=== PATIENT | female | born 1955 | race African-American/Black ===

== ENCOUNTER 2016-09-02 12:35 | Inpatient (IN) | payer OTHER ==
[2016-09-02 14:19] VITALS: BMI 28.7
[2016-09-02] MEDS ORDERED: MAG HYDROX/AL HYDROX/SIMETH 30 ML UNIT-DOSE CUP PO PRN (14:55)
[2016-09-02] MEDS ORDERED: chlordiazePOXIDE HCL 25 MG CAPSULE PO PRN (14:55)
[2016-09-02] MEDS ORDERED: LOPERAMIDE HCL 2 MG CAPSULE PO PRN (14:55)
[2016-09-02] MEDS ORDERED: MAGNESIUM HYDROX 2400MG/30ML ORAL SUSPENSION 30 ML CUP PO PRN (14:55)
[2016-09-02] MEDS ORDERED: MENTHOL/PHENOL 1 EACH UD MM PRN (14:55)
[2016-09-02] MEDS ORDERED: IBUPROFEN 400 MG TABLET (FP) PO PRN (14:55)
[2016-09-02] MEDS ORDERED: P-EPHED 60MG/TRIPROLIDI 2.5MG TABLET PO PRN (14:55)
[2016-09-02] MEDS ORDERED: MAGNESIUM CITRATE 300 ML BOTTLE PO PRN (14:55)
[2016-09-02] MEDS ORDERED: ACETAMINOPHEN 325 MG TABLET (FP) PO PRN (14:55)
[2016-09-02] MEDS ORDERED: hydrOXYzine PAMOATE 25 MG CAPSULE (FP) PO PRN (14:55)
[2016-09-02] MEDS ORDERED: guaiFENesin/D-METHORPHAN HB 10 ML UNIT-DOSE CUPS PO PRN (14:55)
--- NOTE | 2016-09-02 15:15 | HP ---
CIWA Score - CIWA Score Nausea/Vomitin Muscle Tremors: 3 Anxiety: 3 Agitation: 3 Paroxysmal Sweats: 3 Orientation: 0-Oriented Tacttile Disturbances: 2-Mild Itch/Numbness/Burn Auditory Disturbances: 0-None Visual Disturbances: 0-None Headache: 0-None Present CIWA-Ar Total Score: 17 Admission ROS BHS - HPI Chief Complaint: i need help to stop using alcohol. Allergies/Adverse Reactions: Allergies Allergy/AdvReac Type Severity Reaction Status Date / Time ciprofloxacin [From Cipro] Allergy Severe Verified 09/02/16 14:42 ciprofloxacin HCl Allergy Severe Verified 09/02/16 14:42 [From Cipro] egg Allergy Severe Verified 09/02/16 14:44 Penicillins Allergy Severe Verified 09/02/16 14:42 Sulfa (Sulfonamide Allergy Severe Verified 09/02/16 14:42 Antibiotics) History of Present Illness: 61 y/o f pt with a h/o chronic alcoholism and cocaine abuse seeking detox. Exam Limitations: No Limitations - Ebola screening Have you traveled outside of the country in the last 21 days: No Have you had contact with anyone from an Ebola affected area: No Have you been sick,other than usual withdrawal symptoms: No Do you have a fever: No - Review of Systems Constitutional: Malaise, Changes in sleep, Weakness EENT: reports: Blurred Vision, Dental Problems (multiple missing teeth) Respiratory: reports: Shortness of Breath, Wheezing Cardiac: reports: Palpitations GI: reports: Indigestion Musculoskeletal: reports: Joint Pain, Muscle Pain, Muscle Weakness, Neck Pain Integumentary: reports: Dryness Neuro: reports: Tremors Endocrine: reports: No Symptoms Reported Hematology: reports: No Symptoms Reported Psychiatric: reports: Agitated, Anxious, Depressed Other Systems: Reviewed and Negative Patient History - Patient Medical History Hx Anemia: Yes Hx Asthma: Yes Hx Chronic Obstructive Pulmonary Disease (COPD): No Hx Cancer: No Hx Cardiac Disorders: No Hx Hypertension: Yes (non complaint with meds.) Hx Hypercholesterolemia: Yes Hx Pacemaker: No HX Cerebrovascular Accident: No Hx Seizures: No Hx Dementia: No Hx Diabetes: No Hx Gastrointestinal Disorders: No Hx Liver Disease: No Hx Genitourinary Disorders: No Hx Sexually Transmitted Disorders: No Hx Renal Disease (ESRD): No Hx Thyroid Disease: No Hx Human Immunodeficiency Virus (HIV): No Hx Hepatitis C: No Hx Depression: Yes Hx Suicide Attempt: Yes (Tried to overdose 15 yrs ago.) Hx Bipolar Disorder: Yes (schizoaffective ) Hx Schizophrenia: No Other Medical History: h/o rt leg sciatica - ambulates with a cane . - Patient Surgical History Past Surgical History: Yes Hx Hysterectomy: Yes Other Surgical History: Partial hysterectomy - PPD History Previous Implant?: Yes Documented Results: Positive w/o proof Implanted On Prior R Admission?: No - Reproductive History Patient is a Female of Child Bearing Age (11 -55 yrs old): Yes Last Menstrual Period: 08/30/96 Patient : No - Smoking Cessation Smoking history: Current every day smoker Have you smoked in the past 12 months: Yes Aproximately how many cigarettes per day: 10 Cigars Per Day: 0 Hx Chewing Tobacco Use: No Initiated information on smoking cessation: Yes 'Breaking Loose' booklet given: 09/02/16 - Substance & Tx. History Hx Alcohol Use: Yes Hx Substance Use: Yes Substance Use Type: Alcohol, Cocaine Hx Substance Use Treatment: Yes - Substances Abused Alcohol Route: Oral Frequency: Daily Amount used: 1 PINT VODKA/ 2 BEERS Age of first use: 20 Date of Last Use: 09/02/16 Cocaine Route: Inhalation Frequency: 1-3 times last 30 days Amount used: 1/2 GRAM Age of first use: 20 Date of Last Use: 09/01/16 Family Disease History - Family Disease History Family Disease History: Diabetes: Mother (asthma ), Respiratory: Mother Admission Physical Exam BHS - Vital Signs Vital Signs: Vital Signs - 24 hr 09/02/16 14:17 Temperature 96.9 F L Pulse Rate 105 H Respiratory 20 Rate Blood Pressure 159/106 61 y/o f pt aox3 ambulates with a cane , cooperative with exam . - Physical General Appearance: Yes: Appropriately Dressed, Obese, Tremorous (mild), Sweating, Anxious HEENTM: Yes: EOMI, Hearing grossly Normal, Normal Voice, JULIANO Respiratory: Yes: Chest Non-Tender, Lungs Clear, Normal Breath Sounds, No Respiratory Distress Neck: Yes: Supple, Trachea in good position Breast: Yes: Breast Exam Deferred Cardiology: Yes: Regular Rhythm, Tachycardia Abdominal: Yes: Non Tender, Soft, Increased Bowel Sounds, Protuberent Genitourinary: Yes: Frequency Back: Yes: Decreased Range of Motion Musculoskeletal: Yes: Back pain, Muscle weakness (on rt le) Neurological: Yes: pattern weaver II-XII NML intact, Fully Oriented, Alert, Motor Strength 5/5, Normal Response Integumentary: Yes: Diaphoresis, Moist Lymphatic: Yes: Within Normal Limits - Diagnostic (1) Alcohol dependence with uncomplicated withdrawal Current Visit: Yes Status: Chronic (2) Cocaine abuse, uncomplicated Current Visit: Yes Status: Chronic (3) Nicotine dependence Current Visit: Yes Status: Chronic Qualifiers: Nicotine product type: cigarettes Substance use status: uncomplicated Qualified Code(s): F17.210 - Nicotine dependence, cigarettes, uncomplicated (4) HTN (hypertension) Current Visit: Yes Status: Chronic Qualifiers: Hypertension type: essential hypertension Qualified Code(s): I10 - Essential (primary) hypertension (5) Bipolar 1 disorder Current Visit: Yes Status: Chronic (6) GERD (gastroesophageal reflux disease) Current Visit: Yes Status: Chronic Qualifiers: Esophagitis presence: without esophagitis Qualified Code(s): K21.9 - Gastro-esophageal reflux disease without esophagitis (7) H/O sciatica Current Visit: Yes Status: Chronic Comment: on rt -ambulates with a cane Cleared for Admission [facility] - Detox or Rehab [facility] Level of Care: Medically Managed Detox Regimen/Protocol: Librium [facility] Breath Alcohol Content Breath Alcohol Content: 0 Urine Pregancy Test - Result Urine Test Results: Negative- NO Line Present Urine Drug Screen - Results Drug Screen Negative: No Urine Drug Screen Results: LASHELL-Cocaine, TCA-Tricyclic Antidepress
[2016-09-02] MEDS ORDERED: ENALAPRIL MALEATE 10 MG TABLET (FP) PO ONE (15:30)
[2016-09-02] MEDS: chlordiazePOXIDE HCL 25 MG CAPSULE PO SCH ×2 (16:44→22:54)
[2016-09-02] MEDS: ENALAPRIL MALEATE 10 MG TABLET (FP) PO SCH (16:44)
[2016-09-02] MEDS: ATORVASTATIN CA 40 MG TABLET (FP) PO SCH (22:54)
[2016-09-02] MEDS: CYCLOBENZAPRINE HCL 10 MG TABLET (FP) PO SCH (22:54)
[2016-09-02] MEDS: THIAMINE HCL 100 MG TABLET (FP) PO SCH (22:54)
[2016-09-02] MEDS: diphenhydrAMINE HCL 50 MG CAPSULE PO PRN (22:54)
[2016-09-02 23:11] LABS: URINE APPEARANCE SLCLOUDY; URINE BILIRUBIN NEGATIVE (NEGATIVE); URINE BLOOD NEGATIVE (NEGATIVE); URINE COLOR YELLOW; URINE GLUCOSE (UA) NEGATIVE (NEGATIVE); URINE KETONE NEGATIVE (NEGATIVE); URINE NITRITE NEGATIVE (NEGATIVE); URINE PROTEIN NEGATIVE (NEGATIVE); URINE UROBILINOGEN NEGATIVE E.U./dl (0.2-1.0)
[2016-09-02 23:13] LABS: URINE LEUK ESTERASE TRACE (NEGATIVE)
[2016-09-02 23:15] LABS: URINE BACTERIA MANY /hpf (NONE SEEN); URINE HYALINE CAST 1 /lpf; URINE MUCUS FEW; URINE RBC 1 /hpf (0-3); URINE WBC 5 /hpf (3-5)
[2016-09-02] MEDS: NICOTINE POLACRILEX 4 MG GUM BUC PRN (23:57)
[2016-09-03] MEDS: chlordiazePOXIDE HCL 25 MG CAPSULE PO SCH ×4 (05:28→22:47)
[2016-09-03 10:14] LABS: MCH 32.1 pg (25.7-33.7); MEAN CELL VOLUME 97.4 fl (80-96); MEAN PLT VOLUME 10.2 fl (7.5-11.1); PLATELET COUNT 214 K/MM3 (134-434); RDW 14.5 % (11.6-15.6); WHITE BLOOD COUNT 8.4 K/mm3 (4.0-10.0)
[2016-09-03 10:40] LABS: BILIRUBIN,TOTAL 0.5 mg/dL (0.2-1.0); CALCIUM 9.4 mg/dL (8.5-10.1); CREATININE 1.4 mg/dL (0.55-1.02)
[2016-09-03] MEDS: ENALAPRIL MALEATE 10 MG TABLET (FP) PO SCH ×2 (11:01→14:32)
[2016-09-03] MEDS: CYCLOBENZAPRINE HCL 10 MG TABLET (FP) PO SCH ×2 (11:01→22:47)
[2016-09-03] MEDS: PANTOPRAZOLE 40 MG TABLET (FP) PO SCH (11:01)
[2016-09-03] MEDS: PRENATAL VITAMINS W/ FOLIC ACID TABLET (FP) PO SCH (11:01)
[2016-09-03] MEDS: NICOTINE 21 MG/24 HOURS TOPICAL PATCH TD SCH (11:02)
[2016-09-03] MEDS: NICOTINE POLACRILEX 4 MG GUM BUC PRN ×2 (11:04→22:56)
[2016-09-03] MEDS ORDERED: cloNIDine HCL 0.1 MG TABLET PO ONE (12:05)
[2016-09-03] MEDS ORDERED: AMMONIUM LACTATE 12% LOTION 225 GM BOTTLE TP PRN (12:09)
--- NOTE | 2016-09-03 12:09 | PN ---
BHS CIWA - CIWA Score Nausea/Vomitin Muscle Tremors: 2 Anxiety: 3 Agitation: 3 Paroxysmal Sweats: 3 Orientation: 0-Oriented Tacttile Disturbances: 2-Mild Itch/Numbness/Burn Auditory Disturbances: 0-None Visual Disturbances: 0-None Headache: 0-None Present CIWA-Ar Total Score: 15 BHS Progress Note (SOAP) Subjective: interrupted sleep, sweats, , bodyaches , dry eyes Objective: 09/03/16 12:07 pt aox3 in nad ambulating Assessment: 09/03/16 12:07 withdrawal sx;s Plan: cont. detox increase fuids artifical tears lachydrin lotion analgesic balm
[2016-09-03] MEDS: ARTIFICIAL TEARS (POLYVINYL ALCOHOL 1.4%) OPTH DROPS OU PRN ×2 (13:22→22:46)
--- NOTE | 2016-09-03 16:22 | CONSULT ---
[facility] Psychiatric Consult - Data Date of interview: 09/03/16 Admission source: [facility] Identifying data: First admission to [facility] for this 61 y/o AA female for alcohol and cocaine dependence. Substance Abuse History: - Smoking Cessation. Smoking history: Current every day smoker. Have you smoked in the past 12 months: Yes. Aproximately how many cigarettes per day: 10. Cigars Per Day: 0. Hx Chewing Tobacco Use: No. Initiated information on smoking cessation: Yes. 'Breaking Loose' booklet given : 09/02/16. - Substance & Tx. History. Hx Alcohol Use: Yes. Hx Substance Use : Yes. Substance Use Type: Alcohol, Cocaine. Hx Substance Use Treatment: Yes. - Substances Abused. Alcohol. Route: Oral. Frequency: Daily. Amount used: 1 PINT VODKA/ 2 BEERS. Age of first use: 20. Date of Last Use: . Cocaine. Route: Inhalation. Frequency: 1-3 times last 30 days. Amount used: 1/2 GRAM. Age of first use: 20. Date of Last Use: 09/01/16. Confirmed by the patient. Medical History: Bronchial asthma,GERD,sciatica,hypertension,arthritis and a history of partial hysterectomy.Patient ambulates with a cane. Psychiatric History: Patient denies history of psychiatric hospitalizations.It appears that her history consists only of CPEP visits for extended observation and release the next day.Diagnosed with Bipolar Disorder.Medications (confirmed by pharmacy claims) : seroquel 600 mg po hs + wellbutrin XL 150 mg/day + neurontin 300 mg po tid.Ms Heart gets [facility]PD psychiatric care at her residence, [facility].Reported history of suicide attempt,years ago,via overdose with medications. Physical/Sexual Abuse/Trauma History: Patient denies. Additional Comment: Urine Drug Screen Results: LASHELL-Cocaine, TCA-Tricyclic Antidepressant.Noted. Mental Status Exam - Mental Status Exam Alert and Oriented to: Time, Place, Person Cognitive Function: Good Patient Appearance: Well Groomed Mood: Hopeful Affect: Normal Range Patient Behavior: Fatigued, Cooperative Speech Pattern: Clear Voice Loudness: Normal Thought Process: Goal Oriented Thought Disorder: Not Present Hallucinations: Denies Suicidal Ideation: Denies Homicidal Ideation: Denies Insight/Judgement: Poor Sleep: Poorly, Difficulty falling asleep Appetite: Good Gait/Station: Other (walks with a cane) Psychiatric Findings - Problem List ([place] 1, 2,3) (1) Alcohol dependence with uncomplicated withdrawal Current Visit: Yes Status: Acute (2) Cocaine abuse, uncomplicated Current Visit: Yes Status: Acute (3) Nicotine dependence Current Visit: Yes Status: Acute Qualifiers: Nicotine product type: cigarettes Substance use status: uncomplicated Qualified Code(s): F17.210 - Nicotine dependence, cigarettes, uncomplicated (4) Bipolar disorder Current Visit: Yes Status: Chronic (5) GERD (gastroesophageal reflux disease) Current Visit: Yes Status: Chronic Qualifiers: Esophagitis presence: without esophagitis Qualified Code(s): K21.9 - Gastro-esophageal reflux disease without esophagitis (6) H/O sciatica Current Visit: Yes Status: Chronic Comment: on rt -ambulates with a cane (7) HTN (hypertension) Current Visit: Yes Status: Chronic Qualifiers: Hypertension type: essential hypertension Qualified Code(s): I10 - Essential (primary) hypertension - Initial Treatment Plan Initial Treatment Plan: Psychoeducation.Detoxification.Medications : seroquel 300 mg po hs (reduced) + wellbutrin XL 150 mg po daily + gabapentin 300 mg po tid.Side effects/benefits discussed with patient.She,verbally,consents for treatment.Observation.No scripts needed at discharge (available supply at home/ regular scripts from [facility]PD psychiatrist).
--- NOTE | 2016-09-03 16:55 | EKG ---
Test Reason : Blood Pressure : / mmHG Vent. Rate : 105 BPM Atrial Rate : 105 BPM P-R Int : 162 ms QRS Dur : 086 ms QT Int : 376 ms P-R-T Axes : 044 000 040 degrees QTc Int : 496 ms SINUS TACHYCARDIA OTHERWISE NORMAL ECG NO PREVIOUS ECGS AVAILABLE Confirmed by SALVATORE TOUSSAINT MD ([id number]) on 09/03/2016 4:55:12 PM Referred By: Confirmed By:SALVATORE TOUSSAINT MD
[2016-09-03] MEDS ORDERED: QUEtiapine FUMARATE 300 MG TABLET PO SCH (22:00)
[2016-09-03] MEDS: METHYL SALICYLATE/MENTHOL OINT 30 GM TUBE TP SCH (22:46)
[2016-09-03] MEDS: GABAPENTIN 300 MG CAPSULE (FP) PO SCH (22:47)
[2016-09-03] MEDS: ATORVASTATIN CA 40 MG TABLET (FP) PO SCH (22:47)
[2016-09-03] MEDS: THIAMINE HCL 100 MG TABLET (FP) PO SCH (22:48)
[2016-09-04] MEDS: chlordiazePOXIDE HCL 25 MG CAPSULE PO SCH ×2 (05:02→10:41)
[2016-09-04] MEDS: GABAPENTIN 300 MG CAPSULE (FP) PO SCH (05:02)
[2016-09-04] MEDS: NICOTINE 21 MG/24 HOURS TOPICAL PATCH TD SCH (10:40)
[2016-09-04] MEDS: CYCLOBENZAPRINE HCL 10 MG TABLET (FP) PO SCH (10:40)
[2016-09-04] MEDS: METHYL SALICYLATE/MENTHOL OINT 30 GM TUBE TP SCH ×2 (10:40→22:31)
[2016-09-04] MEDS: ENALAPRIL MALEATE 10 MG TABLET (FP) PO SCH (10:44)
[2016-09-04] MEDS: PRENATAL VITAMINS W/ FOLIC ACID TABLET (FP) PO SCH (10:44)
[2016-09-04] MEDS: PANTOPRAZOLE 40 MG TABLET (FP) PO SCH ×2 (10:45→10:56)
[2016-09-04] MEDS: amLODIPine BESYLATE 5 MG TABLET (FP) PO SCH (10:45)
--- NOTE | 2016-09-04 10:56 | PN ---
[facility] CIWA - CIWA Score Nausea/Vomitin-No Nausea/No Vomiting Muscle Tremors: 3 Anxiety: 2 Agitation: 3 Paroxysmal Sweats: 3 Orientation: 0-Oriented Tacttile Disturbances: 0-None Auditory Disturbances: 0-None Visual Disturbances: 0-None Headache: 0-None Present CIWA-Ar Total Score: 11 [facility] Progress Note (SOAP) Subjective: very groggy sluggish interrupted sleep sweats Objective: 09/04/16 10:57 Vital Signs Temperature 97.5 F L 09/04/16 10:00 Pulse Rate 93 H 09/04/16 10:00 Respiratory Rate 18 09/04/16 10:00 Blood Pressure 134/92 09/04/16 10:00 O2 Sat by Pulse Oximetry (%) Laboratory Tests 09/02/16 09/03/16 09/03/16 22:00 06:00 06:00 WBC 8.4 RBC 4.20 Hgb 13.5 Hct 40.9 MCV 97.4 H MCHC 33.0 RDW 14.5 Plt Count 214 MPV 10.2 Sodium 141 Potassium 3.5 Chloride 108 H Carbon Dioxide 23 Anion Gap 10 BUN 28 H Creatinine 1.4 H Creat Clearance w eGFR 38.49 Random Glucose 84 Calcium 9.4 Total Bilirubin 0.5 AST 23 ALT 36 Alkaline Phosphatase 122 H Total Protein 8.0 Albumin 4.0 Urine Color Yellow Urine Appearance Slcloudy Urine pH 6.0 Ur Specific [place] 1.024 Urine Protein Negative Urine Glucose (UA) Negative Urine Ketones Negative Urine Blood Negative Urine Nitrite Negative Urine Bilirubin Negative Urine Urobilinogen Negative Ur Leukocyte Esterase Trace H Urine RBC 1 Urine WBC 5 Ur Epithelial Cells Moderate Urine Bacteria Many Hyaline Casts 1 Urine Mucus Few RPR Titer 09/03/16 06:00 WBC RBC Hgb Hct MCV MCHC RDW Plt Count MPV Sodium Potassium Chloride Carbon Dioxide Anion Gap BUN Creatinine Creat Clearance w eGFR Random Glucose Calcium Total Bilirubin AST ALT Alkaline Phosphatase Total Protein Albumin Urine Color Urine Appearance Urine pH Ur Specific [place] Urine Protein Urine Glucose (UA) Urine Ketones Urine Blood Urine Nitrite Urine Bilirubin Urine Urobilinogen Ur Leukocyte Esterase Urine RBC Urine WBC Ur Epithelial Cells Urine Bacteria Hyaline Casts Urine Mucus RPR Titer Nonreactive awake/alert responsive when spoken too but appears too sedated lying in bed Assessment: 09/04/16 10:58 mild withdrawal sx Plan: hold librium this am increase fluids psych also consulted with and also agreed to hold all sedating medication will re-evaluate
--- NOTE | 2016-09-04 11:05 | PN ---
Psychiatric Progress Note Vital Signs: Vital Signs Period Temp Pulse Resp BP Sys/Gordon Pulse Ox Last 24 Hr 97.5 F-98.4 F 93-109 18-18 111-148/65-102 Date of Session: 09/04/16 Chief Complaint:: Oversedation HPI: As per nursing report patient is oversedated, delayed speech and minimal activities Current Medications: Active Medications Generic Name Dose Route Start Last Admin Trade Name Freq PRN Reason Stop Dose Admin Acetaminophen 650 mg 09/02/16 14:55 Tylenol - PO Q4H PRN FEVER OR PAIN Al Hydroxide/Mg Hydroxide 30 ml 09/02/16 14:55 Mylanta Oral Suspension - PO Q6H PRN DYSPEPSIA Amlodipine Besylate 5 mg 09/04/16 10:00 09/04/16 10:45 Norvasc - PO 5 mg DAILY NATASHA Administration Artificial Tears 1 drop 09/03/16 12:10 09/03/16 22:46 Artificial Tears OU 1 drop BID PRN Administration DRY EYES Atorvastatin Calcium 40 mg 09/02/16 22:00 09/03/16 22:47 Lipitor - PO 40 mg HS NATASHA Administration Bupropion HCl 150 mg 09/04/16 10:00 09/04/16 10:46 Wellbutrin Xl - PO Not Given DAILY NATASHA Chlordiazepoxide HCl 10 mg 09/05/16 17:00 Librium - PO 09/06/16 11:01 [id number] NATASHA Chlordiazepoxide HCl 25 mg 09/02/16 14:55 Librium - PO 09/05/16 14:54 Q4H PRN WITHDRAWAL(CONT SUBST) Chlordiazepoxide HCl 15 mg 09/04/16 17:00 Librium - PO 09/05/16 11:01 [id number] NATASHA Diphenhydramine HCl 50 mg 09/02/16 14:55 09/02/16 22:54 Benadryl - PO 50 mg HSMR1 PRN Administration INSOMNIA Enalapril Maleate 10 mg 09/03/16 10:00 09/04/16 10:44 Vasotec - PO 10 mg DAILY NATASHA Administration Enalapril Maleate 10 mg 09/02/16 15:30 09/03/16 14:32 Vasotec - PO Not Given ONCE NATASHA Ergocalciferol 50,000 unit 09/09/16 10:00 Drisdol - PO Mo@1000 NATASHA Eucalyptus/Menthol/Phenol/Sorbitol 1 each 09/02/16 14:55 Cepastat Lozenge - MM Q4H PRN SORE THROAT Gabapentin 300 mg 09/03/16 22:00 09/04/16 05:02 Neurontin - PO 300 mg TID NATASHA Administration Guaifenesin 10 ml 09/02/16 14:55 Robitussin Dm - PO Q6H PRN COUGH Hydroxyzine Pamoate 25 mg 09/02/16 14:55 Vistaril - PO Q4H PRN AGITATION Ibuprofen 400 mg 09/02/16 14:55 Motrin - PO Q6H PRN SEVERE PAIN Lactic Acid 1 applic 09/03/16 12:09 09/03/16 13:20 Lac-Hydrin 12 TP 1 applic BID PRN Administration DRY SKIN Loperamide HCl 4 mg 09/02/16 14:55 Imodium - PO Q6H PRN DIARRHEA Magnesium Citrate 300 ml 09/02/16 14:55 Citroma - PO Q48H PRN CONSTIPATION Magnesium Hydroxide 30 ml 09/02/16 14:55 Milk Of Magnesia - PO DAILY PRN CONSTIPATION Methyl Salicylate 1 applic 09/03/16 22:00 09/04/16 10:40 Jose-Mooney - TP Not Given BID [facility] Nicotine 21 mg 09/03/16 10:00 09/04/16 10:40 Nicoderm Patch - TD Not Given DAILY [facility] Nicotine Polacrilex 4 mg 09/02/16 14:55 09/03/16 22:56 Nicorette Gum - BUC 4 mg Q2H PRN Administration NICOTINE REPLACEMENT RX Pantoprazole Sodium 40 mg 09/03/16 10:00 09/04/16 10:56 Protonix - PO Not Given DAILY [facility] Multivit/Folic Acid/Iron 1 tab 09/03/16 10:00 09/04/16 10:44 Vitamins (Sjr) - PO Not Given DAILY [facility] Pseudoephedrine/Triprolidine 1 combo 09/02/16 14:55 Actifed - PO TID PRN NASAL CONGESTION Quetiapine Fumarate 300 mg 09/03/16 22:00 09/03/16 22:47 Seroquel - PO 300 mg HS NATASHA Administration Thiamine HCl 100 mg 09/02/16 22:00 09/03/16 22:48 Vitamin B1 - PO 100 mg HS NATASHA Administration Medication(s) Change(s): Hold psychiatric medicatins until patient is sedated Mental Status Exam - Mental Status Exam Alert and Oriented to: Person Cognitive Function: Fair Patient Appearance: Unkempt Mood: Sad Affect: Flat Patient Behavior: Sedated Speech Pattern: Delayed Voice Loudness: Moderately Soft/Quiet Thought Process: Circumstantial Thought Disorder: Being Controlled Hallucinations: Denies Suicidal Ideation: Denies Homicidal Ideation: Denies Insight/Judgement: Impaired Sleep: Difficulty falling asleep Appetite: Weight gain Muscle strength/Tone: Moderate Hypotonicity Gait/Station: Shuffling Additional Comments: Elavil 50mg po qhs,. Trazodone 100mg po qhs. Hold psychiatric medicatioins until patoient is oversedated Psychiatric Treatment Plan - Problem List (3) Nicotine dependence Qualifiers: Nicotine product type: cigarettes Substance use status: uncomplicated Qualified Code(s): F17.210 - Nicotine dependence, cigarettes, uncomplicated (4) Bipolar 1 disorder Initial treatment plan: Elavil 50mg po qhs,. Trazodone 100mg po qhs. Hold psychiatric medicatioins until patoient is oversedated
[2016-09-04] MEDS: chlordiazePOXIDE 5 MG CAPSULE PO SCH ×2 (18:14→22:31)
[2016-09-04] MEDS: ATORVASTATIN CA 40 MG TABLET (FP) PO SCH (22:32)
[2016-09-04] MEDS: THIAMINE HCL 100 MG TABLET (FP) PO SCH (22:32)
[2016-09-04] MEDS: diphenhydrAMINE HCL 50 MG CAPSULE PO PRN (22:33)
[2016-09-05] MEDS: NICOTINE POLACRILEX 4 MG GUM BUC PRN ×2 (02:37→10:57)
[2016-09-05] MEDS: chlordiazePOXIDE 5 MG CAPSULE PO SCH ×2 (05:41→10:54)
[2016-09-05] MEDS: diphenhydrAMINE HCL 50 MG CAPSULE PO PRN (08:26)
[2016-09-05] MEDS: ENALAPRIL MALEATE 10 MG TABLET (FP) PO SCH (10:54)
[2016-09-05] MEDS: PANTOPRAZOLE 40 MG TABLET (FP) PO SCH (10:54)
[2016-09-05] MEDS: PRENATAL VITAMINS W/ FOLIC ACID TABLET (FP) PO SCH (10:54)
[2016-09-05] MEDS: amLODIPine BESYLATE 5 MG TABLET (FP) PO SCH (10:54)
[2016-09-05] MEDS: METHYL SALICYLATE/MENTHOL OINT 30 GM TUBE TP SCH ×2 (10:55→22:46)
[2016-09-05] MEDS: NICOTINE 21 MG/24 HOURS TOPICAL PATCH TD SCH (10:55)
[2016-09-05] MEDS ORDERED: diphenhydrAMINE HCL 25 MG CAPSULE (FP) PO PRN (12:01)
--- NOTE | 2016-09-05 12:01 | PN ---
BHS Progress Note (SOAP) Subjective: interrupted sleep, sweats Objective: 09/05/16 11:59 Vital Signs Temperature 98.2 F 09/05/16 09:46 Pulse Rate 108 H 09/05/16 09:46 Respiratory Rate 18 09/05/16 09:46 Blood Pressure 148/102 09/05/16 09:46 O2 Sat by Pulse Oximetry (%) Laboratory Tests 09/02/16 09/03/16 09/03/16 22:00 06:00 06:00 WBC 8.4 RBC 4.20 Hgb 13.5 Hct 40.9 MCV 97.4 H MCHC 33.0 RDW 14.5 Plt Count 214 MPV 10.2 Sodium 141 Potassium 3.5 Chloride 108 H Carbon Dioxide 23 Anion Gap 10 BUN 28 H Creatinine 1.4 H Creat Clearance w eGFR 38.49 Random Glucose 84 Calcium 9.4 Total Bilirubin 0.5 AST 23 ALT 36 Alkaline Phosphatase 122 H Total Protein 8.0 Albumin 4.0 Urine Color Yellow Urine Appearance Slcloudy Urine pH 6.0 Ur Specific [place] 1.024 Urine Protein Negative Urine Glucose (UA) Negative Urine Ketones Negative Urine Blood Negative Urine Nitrite Negative Urine Bilirubin Negative Urine Urobilinogen Negative Ur Leukocyte Esterase Trace H Urine RBC 1 Urine WBC 5 Ur Epithelial Cells Moderate Urine Bacteria Many Hyaline Casts 1 Urine Mucus Few RPR Titer 09/03/16 06:00 WBC RBC Hgb Hct MCV MCHC RDW Plt Count MPV Sodium Potassium Chloride Carbon Dioxide Anion Gap BUN Creatinine Creat Clearance w eGFR Random Glucose Calcium Total Bilirubin AST ALT Alkaline Phosphatase Total Protein Albumin Urine Color Urine Appearance Urine pH Ur Specific [place] Urine Protein Urine Glucose (UA) Urine Ketones Urine Blood Urine Nitrite Urine Bilirubin Urine Urobilinogen Ur Leukocyte Esterase Urine RBC Urine WBC Ur Epithelial Cells Urine Bacteria Hyaline Casts Urine Mucus RPR Titer Nonreactive pt aox3 in nad lying in bed Assessment: 09/05/16 12:00 withdrawal sx's previous allergic reaction resolved Plan: cont detox increase fluids d/c in am
[2016-09-05] MEDS: chlordiazePOXIDE HCL 10 MG CAPSULE PO SCH ×2 (17:37→22:47)
[2016-09-05] MEDS: ATORVASTATIN CA 40 MG TABLET (FP) PO SCH (22:46)
[2016-09-05] MEDS: THIAMINE HCL 100 MG TABLET (FP) PO SCH (22:47)
[2016-09-06] MEDS: chlordiazePOXIDE HCL 10 MG CAPSULE PO SCH (06:23)
--- NOTE | 2016-09-06 09:09 | PN ---
S Progress Note (SOAP) Subjective: ALERT,NO COMPLAINT Objective: 09/06/16 09:07 Vital Signs Temperature 97.1 F L 09/06/16 07:01 Pulse Rate 97 H 09/06/16 07:01 Respiratory Rate 20 09/06/16 07:01 Blood Pressure 139/93 09/06/16 07:01 O2 Sat by Pulse Oximetry (%) Assessment: 09/06/16 09:07 DETOX COMPLETED,NO WITHDRAWAL SYMPTOM Plan: DISCHARGE TODAY,FOLLOW UP WITH AFTER CARE PROGRAM ARRANGEMENT
--- NOTE | 2016-09-06 09:13 | PN ---
S Progress Note (SOAP) Subjective: ALERT,NO COMPLAINT Objective: 09/06/16 09:11 Vital Signs Temperature 97.1 F L 09/06/16 07:01 Pulse Rate 97 H 09/06/16 07:01 Respiratory Rate 20 09/06/16 07:01 Blood Pressure 139/93 09/06/16 07:01 O2 Sat by Pulse Oximetry (%) Assessment: 09/06/16 09:12 DETOX COMPLETED,NO WITHDRAWAL SYMPTOM Plan: DISCHARGE TODAY,FOLLOW UP WITH AFTER CARE PROGRAM ARRANGEMENT AND PMD FOR MEDICAL PROBLEM
--- NOTE | 2016-09-06 09:24 | DS ---
[facility] Detox Discharge Summary Admission Date: 09/02/16 Discharge Date: 09/06/16 - History Present History: Alcohol Dependence, Cocaine Dependence Pertinent Past History: NICOTINE DEPENDENCE HYPERTENSION BIPOLAR 1 DISORDER GERD HISTORY OF SCIATICA ASTHMA HYPERCHOLESTEROLEMIA - Physical Exam Results Vital Signs: Vital Signs Temperature 97.1 F L 09/06/16 07:01 Pulse Rate 97 H 09/06/16 07:01 Respiratory Rate 20 09/06/16 07:01 Blood Pressure 139/93 09/06/16 07:01 O2 Sat by Pulse Oximetry (%) Pertinent Admission Physical Exam Findings: WITHDRAWAL SYMPTOM - Treatment Hospital Course: Detox Protocol Followed, Detoxed Safely, Responded well, Discharged Condition Good Patient has Accepted a Rehab Referral to: DECLINED - Medication Discharge Medications: Ambulatory Orders Atorvastatin Ca [Lipitor] 40 mg PO HS 09/02/16 BUPROPion HCL "SR" [Wellbutrin Sr [Nf]] 150 mg PO DAILY 09/02/16 Cyclobenzaprine HCl [Flexeril 10 mg] 10 mg PO BID 09/02/16 Enalapril Maleate [Vasotec -] 10 mg PO DAILY 09/02/16 Famotidine [Pepcid -] 40 mg PO DAILY 09/02/16 Gabapentin [Neurontin -] 300 mg PO Q8H 09/02/16 Omeprazole 20 mg PO DAILY 09/02/16 Quetiapine Fumarate [Seroquel -] 50 mg PO DAILY 09/02/16 Quetiapine Fumarate [Seroquel -] 600 mg PO HS 09/02/16 Albuterol Sulfate Inhaler - [Ventolin HFA Inhaler -] 2 inh IH Q4H PRN #1 Amlodipine Besylate [Norvasc -] 5 mg PO DAILY #30 tablet 09/06/16 Enalapril Maleate [Vasotec -] 10 mg PO DAILY #30 tablet 09/06/16 Ergocalciferol [Drisdol -] 50,000 unit PO Q7D@1000 #7 cap 09/06/16 - AMA Did Patient Leave Against Medical Advice: No
[2016-09-06] MEDS: PRENATAL VITAMINS W/ FOLIC ACID TABLET (FP) PO SCH (09:34)
[2016-09-06] MEDS: ENALAPRIL MALEATE 10 MG TABLET (FP) PO SCH (09:34)
[2016-09-06] MEDS: PANTOPRAZOLE 40 MG TABLET (FP) PO SCH (09:34)
[2016-09-06] MEDS: METHYL SALICYLATE/MENTHOL OINT 30 GM TUBE TP SCH (09:34)
[2016-09-06] MEDS: amLODIPine BESYLATE 5 MG TABLET (FP) PO SCH (09:34)
[2016-09-06] MEDS: NICOTINE 21 MG/24 HOURS TOPICAL PATCH TD SCH (09:34)
[2016-09-06 10:39] VITALS: BP 143/97; PULSE 107; TEMP 98.1
[2016-09-09] MEDS ORDERED: ERGOCALCIFEROL (VITAMIN D2) 50,000 UNIT CAPSULE (FP) PO SCH (10:00)
== END 2016-09-06 10:25 | disposition home or self-care (01) | DRG 774 ==
LOC: YASAS 12:35 → Y6N 15:27
PROVIDERS: ADMIT Internal Medicine Addiction Medicine; ATTEND Internal Medicine Addiction Medicine
PROC: HZ2ZZZZ Detoxification Services for Substance Abuse Treatment (ICD-10-PCS; principal; 2016-09-06)
DX: F10.230 Alcohol dependence with withdrawal, uncomplicated (principal); F17.210 Nicotine dependence, cigarettes, uncomplicated; F14.10 Cocaine abuse, uncomplicated; F31.9 Bipolar disorder, unspecified; I10 Essential (primary) hypertension; M54.41 Lumbago with sciatica, right side; J45.909 Unspecified asthma, uncomplicated; D64.9 Anemia, unspecified
CPT/HCPCS: 36415; 71020-TC; 80053; 81003; 81015; 85027; 86593; 93005; 93010

== ENCOUNTER 2018-06-15 13:31 | Inpatient (IN) | payer OTHER ==
[2018-06-15 15:28] VITALS: BMI 26.5
--- NOTE | 2018-06-15 18:11 | HP ---
CIWA Score Nausea/Vomitin-No Nausea/No Vomiting Muscle Tremors: 4-Moderate,w/Arms Extend Anxiety: 1-Mildly Anxious Agitation: 4-Moderately Restless Paroxysmal Sweats: 3 (Increased facial moisture w/o beads) Orientation: 1-Uncertain about Date Tacttile Disturbances: 1-Very Mild Itch/Numbness Auditory Disturbances: 0-None Visual Disturbances: 0-None Headache: 3-Moderate CIWA-Ar Total Score: 17 - Admission Criteria [facility]ASAS Guidelines: Admission for Medically Managed Detox: Requires at least one of the followin. CIWA greater than 12 2. Seizures within the past 24 hours 3. Delirium tremens within the past 24 hours 4. Hallucinations within the past 24 hours 5. Acute intervention needed for co occurring medical disorder 6. Acute intervention needed for co occurring psychiatric disorder 7. Severe withdrawal that cannot be handled at a lower level of care (continued vomiting, continued diarrhea, abnormal vital signs) requiring intravenous medication and/or fluids 8. Patient presents the following: CIWA greater than 12 Admission Criteria Met: Admission criteria met Admission ROS [facility] Chief Complaint: Here for alcohol withdrawal. Allergies/Adverse Reactions: Allergies Allergy/AdvReac Type Severity Reaction Status Date / Time ciprofloxacin [From Cipro] Allergy Severe Verified 06/15/18 16:41 ciprofloxacin HCl Allergy Severe Verified 06/15/18 16:41 [From Cipro] egg Allergy Severe Verified 06/15/18 16:41 Penicillins Allergy Severe Verified 06/15/18 16:41 Sulfa (Sulfonamide Allergy Severe Verified 06/15/18 16:41 Antibiotics) History of Present Illness: States I need alcohol detox. Alcohol use began at age 20. Cocaine use began at age 21. Nicotine use began at age 20. Denies hx seizures. Last blackout 1 month ago. Longest length of sobriety 1 - 2 days. Hx: HTN, asthma, elevated cholesterol, acid reflux, kidney stones, arthritis, low back pain, and dry eyes. Hx: Depression. Denies thoughts of harming self or others. Last saw MH provider August 2017. Search Terms: [facility], 1955 Search Date: 06/15/2018 06:07:13 PM The Drug Utilization Report below displays all of the controlled substance prescriptions, if any, that your patient has filled in the last twelve months. The information displayed on this report is compiled from pharmacy submissions to the Department, and accurately reflects the information as submitted by the pharmacies. This report was requested by: Rubina Shaver | Reference #: [id number] There are no results for the search terms that you entered. Exam Limitations: No Limitations - Ebola screening Have you traveled outside of the country in the last 21 days: No Have you had contact with anyone from an Ebola affected area: No Have you been sick,other than usual withdrawal symptoms: No Do you have a fever: No - Review of Systems Constitutional: Chills, Diaphoresis, Changes in sleep (Takes Seroquel for sleep) EENT: reports: Blurred Vision, Dental Problems (Missing teeth. Chews and swallows okay.), Other (States takes nmedications for dry eyes.) Respiratory: reports: No Symptoms reported Cardiac: reports: Irregular Heart Rate (Hx rapid heart beat. States bet- blockers were d/c.) GI: reports: Nausea, Indigestion (Acid reflux) : reports: No Symptoms Reported (Hx kidney stones and failure. No current problem, burning pain or blood w/ urination.) Musculoskeletal: reports: Back Pain (Back pain sometimes achy/throbbing, sometimes sharp. "9".), Joint Pain (Knee and hand dull throbbing pain r/t arthritis. Pain "8". Puts a cream on knees.) Integumentary: reports: No Symptoms Reported Neuro: reports: Numbness (Numbness and needle and pin sensation in fingertips.) , Tremors Endocrine: reports: No Symptoms Reported Hematology: reports: Anemia (Vitamin D Deficiency) Psychiatric: reports: Judgement Intact, Agitated, Anxious, Depressed (Denies thoughts of harming self or others.) Patient History - Patient Medical History Hx Anemia: Yes Hx Asthma: Yes Hx Chronic Obstructive Pulmonary Disease (COPD): No Hx Cancer: No Hx Cardiac Disorders: No Hx Hypertension: Yes (non complaint with meds.) Hx Hypercholesterolemia: Yes Hx Pacemaker: No HX Cerebrovascular Accident: No Hx Seizures: No Hx Dementia: No Hx Diabetes: No Hx Gastrointestinal Disorders: No Hx Liver Disease: No Hx Genitourinary Disorders: No Hx Sexually Transmitted Disorders: No Hx Renal Disease (ESRD): No Hx Thyroid Disease: No Hx Human Immunodeficiency Virus (HIV): No Hx Hepatitis C: No Hx Depression: Yes Hx Suicide Attempt: Yes (Tried to overdose 15 yrs ago.) Hx Bipolar Disorder: Yes (schizoaffective ) Hx Schizophrenia: Yes - Patient Surgical History Past Surgical History: Yes Hx Neurologic Surgery: No Hx Cataract Extraction: No Hx Cardiac Surgery: No Hx Lung Surgery: No Hx Breast Surgery: No Hx Breast Biopsy: No Hx Abdominal Surgery: No Hx Appendectomy: No Hx Cholecystectomy: No Hx Genitourinary Surgery: No Hx Section: No Hx Orthopedic Surgery: No Hx Hysterectomy: Yes Other Surgical History: Partial hysterectomy Anesthesia Reaction: No - PPD History Previous Implant?: Yes Documented Results: Positive w/proof Implanted On Prior [facility] Admission?: No Results: CXR -neg 08/2016 PPD to be Administered?: No - Reproductive History Patient is a Female of Child Bearing Age (11 -55 yrs old): No Last Menstrual Period: 08/30/96 Patient : No - Smoking Cessation Smoking history: Current every day smoker Have you smoked in the past 12 months: Yes Aproximately how many cigarettes per day: 10 Cigars Per Day: 0 Hx Chewing Tobacco Use: No Initiated information on smoking cessation: Yes 'Breaking Loose' booklet given: 06/15/18 - Substance & Tx. History Hx Alcohol Use: Yes Hx Substance Use: Yes Substance Use Type: Alcohol, Cocaine Hx Substance Use Treatment: Yes (detox, rehab, our-patient program) - Substances Abused Alcohol Route: Oral Frequency: Daily Amount used: LIQUOR- 1 PINT, BEER- 4 (24OZ) Age of first use: 20 Date of Last Use: 06/14/18 Cocaine Route: Inhalation Frequency: Daily Amount used: 1/2 gram Age of first use: 21 Date of Last Use: 06/14/18 Family Disease History - Family Disease History Family Disease History: Diabetes: Mother (asthma ), Respiratory: Mother Admission Physical Exam BHS - Vital Signs Vital Signs: Vital Signs - 24 hr 06/15/18 15:27 Temperature 98.6 F Pulse Rate 107 H Respiratory 18 Rate Blood Pressure 149/95 - Physical General Appearance: Yes: Nourished, Appropriately Dressed, Moderate Distress, Tremorous, Sweating (Increased facial moisture w/o beads), Anxious HEENTM: Yes: EOMI, Hearing grossly Normal, Normal Voice, JULIANO, Pharynx Normal Respiratory: Yes: Lungs Clear, Normal Breath Sounds, No Respiratory Distress Neck: Yes: No masses,lesions,Nodules, Supple Breast: Yes: Breast Exam Deferred Cardiology: Yes: Regular Rhythm, S1, S2, Tachycardia Abdominal: Yes: Non Tender, Soft, Increased Bowel Sounds Genitourinary: Yes: Within Normal Limits Back: Yes: Normal Inspection Musculoskeletal: Yes: full range of Motion, Gait Steady Extremities: Yes: Normal Capillary Refill, Normal Range of Motion, Non-Tender, Tremors (Tremors at rest and increase w/ arms elevated.) Neurological: Yes: safety leader II-XII NML intact, Alert, Motor Strength 5/5 Integumentary: Yes: Normal Color, Dry (Decreased skin turgor), Warm Lymphatic: Yes: Within Normal Limits - Diagnostic (1) Alcohol dependence with uncomplicated withdrawal Current Visit: Yes Status: Acute (2) Cocaine abuse, uncomplicated Current Visit: Yes Status: Chronic (3) Nicotine dependence Current Visit: Yes Status: Acute Qualifiers: Nicotine product type: cigarettes Substance use status: uncomplicated Qualified Code(s): F17.210 - Nicotine dependence, cigarettes, uncomplicated (4) GERD (gastroesophageal reflux disease) Current Visit: Yes Status: Chronic Qualifiers: Esophagitis presence: without esophagitis Qualified Code(s): K21.9 - Gastro -esophageal reflux disease without esophagitis (5) H/O sciatica Current Visit: Yes Status: Chronic Comment: on rt -ambulates with a cane (6) HTN (hypertension) Current Visit: Yes Status: Chronic Qualifiers: Hypertension type: essential hypertension Qualified Code(s): I10 - Essential (primary) hypertension (7) History of asthma Current Visit: Yes Status: Chronic Cleared for Admission [facility] - Detox or Rehab [facility] Level of Care: Medically Managed Detox Regimen/Protocol: Librium [facility] Breath Alcohol Content Breath Alcohol Content: 0 Urine Pregancy Test - Result Urine Test Results: Negative- NO Line Present Urine Drug Screen - Results Drug Screen Negative: No Urine Drug Screen Results: LASHELL-Cocaine
[2018-06-15] MEDS ORDERED: IBUPROFEN 400 MG TABLET (FP) PO PRN (18:55)
[2018-06-15] MEDS ORDERED: MAG HYDROX/AL HYDROX/SIMETH 30 ML UNIT-DOSE CUP PO PRN (18:55)
[2018-06-15] MEDS ORDERED: MENTHOL/PHENOL 1 EACH UD MM PRN (18:55)
[2018-06-15] MEDS ORDERED: chlordiazePOXIDE HCL 25 MG CAPSULE PO PRN (18:55)
[2018-06-15] MEDS ORDERED: NICOTINE POLACRILEX 2 MG GUM BC PRN (18:55)
[2018-06-15] MEDS ORDERED: MAGNESIUM CITRATE 300 ML BOTTLE PO PRN (18:55)
[2018-06-15] MEDS ORDERED: MAGNESIUM HYDROX 2400MG/30ML ORAL SUSPENSION 30 ML CUP PO PRN (18:55)
[2018-06-15] MEDS ORDERED: LOPERAMIDE HCL 2 MG CAPSULE PO PRN (18:55)
[2018-06-15] MEDS ORDERED: ARTIFICIAL TEARS (POLYVINYL ALCOHOL) OPTH DROPS OU PRN (19:00)
[2018-06-15] MEDS ORDERED: IBUPROFEN 600 MG TABLET (FP) PO PRN (19:26)
[2018-06-15] MEDS ORDERED: chlordiazePOXIDE HCL 25 MG CAPSULE PO ONE (20:15)
[2018-06-15] MEDS: diphenhydrAMINE HCL 25 MG CAPSULE (FP) PO PRN (21:36)
[2018-06-15] MEDS ORDERED: MELATONIN 5 MG TABLETS PO PRN (22:00)
[2018-06-15] MEDS: THIAMINE HCL 100 MG TABLET (FP) PO SCH (22:04)
[2018-06-15] MEDS: ATORVASTATIN CA 40 MG TABLET (FP) PO SCH (22:04)
[2018-06-15] MEDS: chlordiazePOXIDE HCL 25 MG CAPSULE PO SCH (22:04)
[2018-06-15] MEDS: CYCLOBENZAPRINE HCL 10 MG TABLET (FP) PO SCH (22:04)
[2018-06-16] MEDS: chlordiazePOXIDE HCL 25 MG CAPSULE PO SCH ×4 (06:09→22:09)
[2018-06-16] MEDS: diphenhydrAMINE HCL 25 MG CAPSULE (FP) PO PRN (06:42)
[2018-06-16] MEDS: PANTOPRAZOLE 40 MG TABLET (FP) PO SCH (10:44)
[2018-06-16] MEDS: amLODIPine BESYLATE 5 MG TABLET (FP) PO SCH (10:44)
[2018-06-16] MEDS: PRENATAL VITAMINS W/ FOLIC ACID TABLET (FP) PO SCH (10:44)
[2018-06-16] MEDS: CYCLOBENZAPRINE HCL 10 MG TABLET (FP) PO SCH ×2 (10:44→22:09)
[2018-06-16] MEDS: ACETAMINOPHEN 325 MG TABLET (FP) PO PRN ×2 (10:48→17:22)
[2018-06-16 11:13] LABS: HEMATOCRIT 41.8 % (32.4-45.2); HEMOGLOBIN 13.5 GM/dL (10.7-15.3); MCH 31.7 pg (25.7-33.7); MCHC 32.3 g/dl (32.0-36.0); MEAN CELL VOLUME 98.2 fl (80-96); MEAN PLT VOLUME 8.9 fl (7.5-11.1); PLATELET COUNT 276 K/MM3 (134-434); RBC 4.25 M/mm3 (3.60-5.2); RDW 13.9 % (11.6-15.6); WHITE BLOOD COUNT 6.7 K/mm3 (4.0-10.0)
[2018-06-16 11:22] LABS: ALBUMIN 3.6 g/dl (3.4-5.0); ALK PHOS 95 U/L (45-117); ANION GAP 7 MMOL/L (8-16); BILIRUBIN,TOTAL 0.3 mg/dL (0.2-1); BLOOD UREA NITROGEN 34 mg/dL (7-18); CALCIUM 9.1 mg/dL (8.5-10.1); CHLORIDE 107 mmol/L (98-107); CO2 25 mmol/L (21-32); CREATININE 1.6 mg/dL (0.55-1.3); GLUCOSE,RANDOM 121 mg/dL (74-106); POTASSIUM 3.7 mmol/L (3.5-5.1); SGOT/AST 21 U/L (15-37); SGPT/ALT 26 U/L (13-61); SODIUM 139 mmol/L (136-145); TOT PROT 7.6 g/dl (6.4-8.2)
[2018-06-16 11:24] LABS: URINE APPEARANCE CLEAR; URINE BILIRUBIN NEGATIVE (<2.0 mg/dL); URINE COLOR LTYELLOW; URINE GLUCOSE (UA) 1+ (NEGATIVE); URINE KETONE NEGATIVE (NEGATIVE); URINE LEUK ESTERASE NEGATIVE (NEGATIVE); URINE NITRITE NEGATIVE (NEGATIVE); URINE PROTEIN NEGATIVE (NEGATIVE); URINE UROBILINOGEN NEGATIVE mg/dL (0.2-1.0)
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
[2018-06-16] MEDS: GABAPENTIN 300 MG CAPSULE (FP) PO SCH ×2 (14:39→22:08)
--- NOTE | 2018-06-16 17:28 | PN ---
S CIWA - CIWA Score Nausea/Vomitin Muscle Tremors: 4-Moderate,w/Arms Extend Anxiety: 4-Mod. Anxious/Guarded Agitation: 0-Normal Activity Paroxysmal Sweats: No Perspiration Orientation: 0-Oriented Tacttile Disturbances: 2-Mild Itch/Numbness/Burn Auditory Disturbances: 0-None Visual Disturbances: 0-None Headache: 3-Moderate CIWA-Ar Total Score: 16 BHS Progress Note (SOAP) Subjective: Body Aches, Tremors, Anxious, Nausea, Interrupted Sleep, H/A. Objective: PATIENT A & O X 3. IN NO ACUTE DISTRESS. 06/16/18 17:24 Vital Signs Temperature 96.7 F L 06/16/18 13:36 Pulse Rate 90 06/16/18 13:36 Respiratory Rate 18 06/16/18 13:36 Blood Pressure 127/86 06/16/18 13:36 O2 Sat by Pulse Oximetry (%) Laboratory Tests 06/16/18 06/16/18 06/16/18 07:30 07:30 07:30 WBC 6.7 RBC 4.25 Hgb 13.5 Hct 41.8 MCV 98.2 H MCH 31.7 MCHC 32.3 RDW 13.9 Plt Count 276 D MPV 8.9 D Sodium 139 Potassium 3.7 Chloride 107 Carbon Dioxide 25 Anion Gap 7 L BUN 34 H Creatinine 1.6 H Creat Clearance w eGFR 32.77 Random Glucose 121 H Calcium 9.1 Total Bilirubin 0.3 AST 21 ALT 26 Alkaline Phosphatase 95 Total Protein 7.6 Albumin 3.6 Urine Color Urine Appearance Urine pH Ur Specific [place] Urine Protein Urine Glucose (UA) Urine Ketones Urine Blood Urine Nitrite Urine Bilirubin Urine Urobilinogen Ur Leukocyte Esterase RPR Titer Nonreactive 06/16/18 07:30 WBC RBC Hgb Hct MCV MCH MCHC RDW Plt Count MPV Sodium Potassium Chloride Carbon Dioxide Anion Gap BUN Creatinine Creat Clearance w eGFR Random Glucose Calcium Total Bilirubin AST ALT Alkaline Phosphatase Total Protein Albumin Urine Color Ltyellow Urine Appearance Clear Urine pH 6.0 Ur Specific [place] 1.020 Urine Protein Negative Urine Glucose (UA) 1+ H Urine Ketones Negative Urine Blood Negative Urine Nitrite Negative Urine Bilirubin Negative Urine Urobilinogen Negative Ur Leukocyte Esterase Negative RPR Titer LABS NOTED. Assessment: 06/16/18 17:25 WITHDRAWAL SYMPTOMS. Plan: CONTINUE DETOX. REPEAT CMP ON 06/18/2018 FOR ABNORMAL ADMISSION RENAL LAB VALUES. BGM ACBK FOR ELEVATED ADMISSION RANDOM GLUCOSE LEVEL. D/C IBUPROFEN AND MAGNESIUM-CONTAINING MEDS. FOR ABNORMAL ADMISSION RENAL LAB VALUES
[2018-06-16] MEDS: ALBUTEROL SO4 2.5/IPRATROPIUM 0.5 INH SOL 3 ML VIAL.NEB. NEB PRN (21:11)
[2018-06-16] MEDS ORDERED: QUEtiapine FUMARATE 50 MG TABLET PO SCH (22:00)
[2018-06-16] MEDS: THIAMINE HCL 100 MG TABLET (FP) PO SCH (22:07)
[2018-06-16] MEDS: ATORVASTATIN CA 40 MG TABLET (FP) PO SCH (22:08)
[2018-06-17] MEDS: GABAPENTIN 300 MG CAPSULE (FP) PO SCH ×3 (06:11→22:31)
[2018-06-17] MEDS: chlordiazePOXIDE HCL 25 MG CAPSULE PO SCH ×3 (06:11→17:40)
--- NOTE | 2018-06-17 08:55 | PN ---
S Progress Note Note: Psychiatirc nurse practitioner note: Speech Communication Instructor and patient were in agreement of seroquel dose increase on 06/17/17 if current dose of 150mg HS was tolerated. Patient reports taking seroquel 300mg HS. As per nursing note, librium 25mg was held this morning due to drowsiness. Seroquel dose will be decreased to 100mg. Patient informed and in agreement with plan.
--- NOTE | 2018-06-17 09:41 | PN ---
S CIWA - CIWA Score Nausea/Vomitin-Mild Nausea/No Vomiting Muscle Tremors: 4-Moderate,w/Arms Extend Anxiety: 1-Mildly Anxious Agitation: 4-Moderately Restless Paroxysmal Sweats: 1-Minimal Palms Moist Orientation: 0-Oriented Tacttile Disturbances: 0-None Auditory Disturbances: 0-None Visual Disturbances: 0-None Headache: 2-Mild CIWA-Ar Total Score: 13 BHS Progress Note (SOAP) Subjective: tremor sweat otherwise feeling ok Objective: 06/17/18 13:38 Vital Signs Temperature 96.4 F L 06/17/18 09:12 Pulse Rate 102 H 06/17/18 09:12 Respiratory Rate 18 06/17/18 09:12 Blood Pressure 154/105 H 06/17/18 09:12 O2 Sat by Pulse Oximetry (%) Laboratory Last Values WBC 6.7 K/mm3 (4.0-10.0) 06/16/18 07:30 RBC 4.25 M/mm3 (3.60-5.2) 06/16/18 07:30 Hgb 13.5 GM/dL (10.7-15.3) 06/16/18 07:30 Hct 41.8 % (32.4-45.2) 06/16/18 07:30 MCV 98.2 fl (80-96) H 06/16/18 07:30 MCH 31.7 pg (25.7-33.7) 06/16/18 07:30 MCHC 32.3 g/dl (32.0-36.0) 06/16/18 07:30 RDW 13.9 % (11.6-15.6) 06/16/18 07:30 Plt Count 276 K/MM3 (134-434) D 06/16/18 07:30 MPV 8.9 fl (7.5-11.1) D 06/16/18 07:30 Sodium 139 mmol/L (136-145) 06/16/18 07:30 Potassium 3.7 mmol/L (3.5-5.1) 06/16/18 07:30 Chloride 107 mmol/L (98-107) 06/16/18 07:30 Carbon Dioxide 25 mmol/L (21-32) 06/16/18 07:30 Anion Gap 7 MMOL/L (8-16) L 06/16/18 07:30 BUN 34 mg/dL (7-18) H 06/16/18 07:30 Creatinine 1.6 mg/dL (0.55-1.3) H 06/16/18 07:30 Creat Clearance w eGFR 32.77 (>60) 06/16/18 07:30 POC Glucometer 109 UNITS (80-120) 06/17/18 06:34 Random Glucose 121 mg/dL (74-106) H 06/16/18 07:30 Calcium 9.1 mg/dL (8.5-10.1) 06/16/18 07:30 Total Bilirubin 0.3 mg/dL (0.2-1) 06/16/18 07:30 AST 21 U/L (15-37) 06/16/18 07:30 ALT 26 U/L (13-61) 06/16/18 07:30 Alkaline Phosphatase 95 U/L (45-117) 06/16/18 07:30 Total Protein 7.6 g/dl (6.4-8.2) 06/16/18 07:30 Albumin 3.6 g/dl (3.4-5.0) 06/16/18 07:30 Urine Color Ltyellow 06/16/18 07:30 Urine Appearance Clear 06/16/18 07:30 Urine pH 6.0 (5.0-8.0) 06/16/18 07:30 Ur Specific [place] 1.020 (1.010-1.035) 06/16/18 07:30 Urine Protein Negative (NEGATIVE) 06/16/18 07:30 Urine Glucose (UA) 1+ (NEGATIVE) H 06/16/18 07:30 Urine Ketones Negative (NEGATIVE) 06/16/18 07:30 Urine Blood Negative (NEGATIVE) 06/16/18 07:30 Urine Nitrite Negative (NEGATIVE) 06/16/18 07:30 Urine Bilirubin Negative (<2.0 mg/dL) 06/16/18 07:30 Urine Urobilinogen Negative mg/dL (0.2-1.0) 06/16/18 07:30 Ur Leukocyte Esterase Negative (NEGATIVE) 06/16/18 07:30 RPR Titer Nonreactive (NONREACTIVE) 06/16/18 07:30 lab noted repeat camp 06/17/18 13:40 Assessment: 06/17/18 13:40 withdrawal sx renal insufficiency Plan: continue detox
[2018-06-17] MEDS: PANTOPRAZOLE 40 MG TABLET (FP) PO SCH (10:40)
[2018-06-17] MEDS: PRENATAL VITAMINS W/ FOLIC ACID TABLET (FP) PO SCH (10:40)
[2018-06-17] MEDS: amLODIPine BESYLATE 5 MG TABLET (FP) PO SCH (10:41)
[2018-06-17] MEDS: CYCLOBENZAPRINE HCL 10 MG TABLET (FP) PO SCH ×2 (11:26→22:31)
[2018-06-17] MEDS ORDERED: amLODIPine BESYLATE 5 MG TABLET (FP) PO ONE (15:00)
[2018-06-17] MEDS ORDERED: cloNIDine HCL 0.1 MG TABLET PO ONE (17:30)
[2018-06-17] MEDS: ALBUTEROL SO4 2.5/IPRATROPIUM 0.5 INH SOL 3 ML VIAL.NEB. NEB PRN (19:37)
[2018-06-17] MEDS: chlordiazePOXIDE 5 MG CAPSULE PO SCH (22:31)
[2018-06-17] MEDS: THIAMINE HCL 100 MG TABLET (FP) PO SCH (22:31)
[2018-06-17] MEDS: ATORVASTATIN CA 40 MG TABLET (FP) PO SCH (22:31)
[2018-06-17] MEDS: QUEtiapine FUMARATE 100 MG TABLET (FP) PO SCH (22:31)
[2018-06-18] MEDS: chlordiazePOXIDE 5 MG CAPSULE PO SCH ×3 (05:57→18:05)
[2018-06-18] MEDS: GABAPENTIN 300 MG CAPSULE (FP) PO SCH ×3 (05:57→22:35)
[2018-06-18 10:21] LABS: ALBUMIN 3.1 g/dl (3.4-5.0); ALK PHOS 98 U/L (45-117); ANION GAP 7 MMOL/L (8-16); BILIRUBIN,TOTAL 0.2 mg/dL (0.2-1); BLOOD UREA NITROGEN 28 mg/dL (7-18); CALCIUM 7.9 mg/dL (8.5-10.1); CHLORIDE 113 mmol/L (98-107); CO2 23 mmol/L (21-32); CREATININE 1.3 mg/dL (0.55-1.3); GLUCOSE,RANDOM 177 mg/dL (74-106); POTASSIUM 3.9 mmol/L (3.5-5.1); SGOT/AST 21 U/L (15-37); SGPT/ALT 29 U/L (13-61); SODIUM 142 mmol/L (136-145); TOT PROT 6.4 g/dl (6.4-8.2)
[2018-06-18] MEDS: CYCLOBENZAPRINE HCL 10 MG TABLET (FP) PO SCH ×2 (10:53→22:35)
[2018-06-18] MEDS: amLODIPine BESYLATE 5 MG TABLET (FP) PO SCH (10:53)
[2018-06-18] MEDS: PANTOPRAZOLE 40 MG TABLET (FP) PO SCH (10:53)
[2018-06-18] MEDS: PRENATAL VITAMINS W/ FOLIC ACID TABLET (FP) PO SCH (10:53)
--- NOTE | 2018-06-18 16:19 | PN ---
S CIWA - CIWA Score Nausea/Vomitin-No Nausea/No Vomiting Muscle Tremors: 2 Anxiety: 1-Mildly Anxious Agitation: 1-Slight > Activity Paroxysmal Sweats: 1-Minimal Palms Moist Orientation: 0-Oriented Tacttile Disturbances: 0-None Auditory Disturbances: 0-None Visual Disturbances: 0-None Headache: 0-None Present CIWA-Ar Total Score: 5 BHS Progress Note (SOAP) Subjective: feeling better little tremor less sweat Objective: 06/18/18 16:17 Vital Signs Temperature 96.5 F L 06/18/18 13:28 Pulse Rate 107 H 06/18/18 13:28 Respiratory Rate 18 06/18/18 13:28 Blood Pressure 119/77 06/18/18 13:28 O2 Sat by Pulse Oximetry (%) Laboratory Last Values WBC 6.7 K/mm3 (4.0-10.0) 06/16/18 07:30 RBC 4.25 M/mm3 (3.60-5.2) 06/16/18 07:30 Hgb 13.5 GM/dL (10.7-15.3) 06/16/18 07:30 Hct 41.8 % (32.4-45.2) 06/16/18 07:30 MCV 98.2 fl (80-96) H 06/16/18 07:30 MCH 31.7 pg (25.7-33.7) 06/16/18 07:30 MCHC 32.3 g/dl (32.0-36.0) 06/16/18 07:30 RDW 13.9 % (11.6-15.6) 06/16/18 07:30 Plt Count 276 K/MM3 (134-434) D 06/16/18 07:30 MPV 8.9 fl (7.5-11.1) D 06/16/18 07:30 Sodium 142 mmol/L (136-145) 06/18/18 07:00 Potassium 3.9 mmol/L (3.5-5.1) 06/18/18 07:00 Chloride 113 mmol/L (98-107) H 06/18/18 07:00 Carbon Dioxide 23 mmol/L (21-32) 06/18/18 07:00 Anion Gap 7 MMOL/L (8-16) L 06/18/18 07:00 BUN 28 mg/dL (7-18) H 06/18/18 07:00 Creatinine 1.3 mg/dL (0.55-1.3) 06/18/18 07:00 Creat Clearance w eGFR 41.64 (>60) 06/18/18 07:00 POC Glucometer 151 UNITS (80-120) 06/18/18 05:58 Random Glucose 177 mg/dL (74-106) H 06/18/18 07:00 Calcium 7.9 mg/dL (8.5-10.1) L 06/18/18 07:00 Total Bilirubin 0.2 mg/dL (0.2-1) 06/18/18 07:00 AST 21 U/L (15-37) 06/18/18 07:00 ALT 29 U/L (13-61) 06/18/18 07:00 Alkaline Phosphatase 98 U/L (45-117) 06/18/18 07:00 Total Protein 6.4 g/dl (6.4-8.2) 06/18/18 07:00 Albumin 3.1 g/dl (3.4-5.0) L 06/18/18 07:00 Urine Color Ltyellow 06/16/18 07:30 Urine Appearance Clear 06/16/18 07:30 Urine pH 6.0 (5.0-8.0) 06/16/18 07:30 Ur Specific [place] 1.020 (1.010-1.035) 06/16/18 07:30 Urine Protein Negative (NEGATIVE) 06/16/18 07:30 Urine Glucose (UA) 1+ (NEGATIVE) H 06/16/18 07:30 Urine Ketones Negative (NEGATIVE) 06/16/18 07:30 Urine Blood Negative (NEGATIVE) 06/16/18 07:30 Urine Nitrite Negative (NEGATIVE) 06/16/18 07:30 Urine Bilirubin Negative (<2.0 mg/dL) 06/16/18 07:30 Urine Urobilinogen Negative mg/dL (0.2-1.0) 06/16/18 07:30 Ur Leukocyte Esterase Negative (NEGATIVE) 06/16/18 07:30 RPR Titer Nonreactive (NONREACTIVE) 06/16/18 07:30 low Ca++ lab noted 06/18/18 16:18 Assessment: 06/18/18 16:18 withdrawal sx hypocalcemia Plan: continue detox oscal
[2018-06-18] MEDS: CALCIUM 250MG/VIT-D 125 UNITS 1 COMBO TABLET PO SCH (18:05)
[2018-06-18] MEDS: QUEtiapine FUMARATE 100 MG TABLET (FP) PO SCH (22:35)
[2018-06-18] MEDS: chlordiazePOXIDE HCL 10 MG CAPSULE PO SCH (22:35)
[2018-06-18] MEDS: ATORVASTATIN CA 40 MG TABLET (FP) PO SCH (22:35)
[2018-06-18] MEDS: THIAMINE HCL 100 MG TABLET (FP) PO SCH (22:35)
[2018-06-19] MEDS: chlordiazePOXIDE HCL 10 MG CAPSULE PO SCH ×2 (06:01→11:04)
[2018-06-19] MEDS: GABAPENTIN 300 MG CAPSULE (FP) PO SCH (06:01)
[2018-06-19] MEDS: diphenhydrAMINE HCL 25 MG CAPSULE (FP) PO PRN (08:27)
[2018-06-19 09:49] VITALS: BP 101/74; PULSE 102; TEMP 97.1
[2018-06-19] MEDS: amLODIPine BESYLATE 5 MG TABLET (FP) PO SCH (11:03)
[2018-06-19] MEDS: CYCLOBENZAPRINE HCL 10 MG TABLET (FP) PO SCH (11:03)
[2018-06-19] MEDS: PANTOPRAZOLE 40 MG TABLET (FP) PO SCH (11:04)
[2018-06-19] MEDS: CALCIUM 250MG/VIT-D 125 UNITS 1 COMBO TABLET PO SCH (11:04)
[2018-06-19] MEDS: PRENATAL VITAMINS W/ FOLIC ACID TABLET (FP) PO SCH (11:04)
--- NOTE | 2018-06-19 13:25 | DS ---
[facility] Detox Discharge Summary Admission Date: 06/15/18 Discharge Date: 06/19/18 - History Present History: Alcohol Dependence, Cocaine Dependence Additional Comments: PATIENT COMPLETED DETOX WITHOUT ADVERSE EVENT. PATIENT ALERT AND ORIENTED X 3. IN NO ACUTE DISTRESS. DENIES SI/HI. PATIENT ENCOURAGED BY STAFF TO ATTEND GROUP MEETINGS TO PREVENT RELAPSE AND FOLLOW UP WITH PCP WITHIN ONE WEEK OF D/C. PATIENT ENCOURAGED TO SEEK MEDICAL ATTENTION IF WITHDRAWAL SX OCCUR. D/C INSTRUCTIONS PROVIDED BY STAFF AND GIVEN TO PATIENT. - Physical Exam Results Vital Signs: Vital Signs Temperature 97.1 F L 06/19/18 09:47 Pulse Rate 102 H 06/19/18 09:47 Respiratory Rate 16 06/19/18 09:47 Blood Pressure 101/74 06/19/18 09:47 O2 Sat by Pulse Oximetry (%) - Treatment Hospital Course: Detox Protocol Followed, Detoxed Safely, Responded well, Discharged Condition Good - Medication Discharge Medications: Ambulatory Orders BUPROPion HCL "SR" [Wellbutrin Sr -] 150 mg PO DAILY 09/02/16 Cyclobenzaprine HCl [Flexeril 10 mg] 10 mg PO BID 09/02/16 Gabapentin [Neurontin -] 300 mg PO Q8H 09/02/16 Quetiapine Fumarate [Seroquel -] 100 mg PO DAILY 09/02/16 Quetiapine Fumarate [Seroquel -] 300 mg PO HS 09/02/16 Albuterol Sulfate Inhaler - [Ventolin HFA Inhaler -] 2 inh IH Q4H PRN #1 inhaler 06/18/18 Amlodipine Besylate [Norvasc -] 5 mg PO DAILY #30 tablet 06/18/18 Atorvastatin Ca [Lipitor] 40 mg PO HS #1 tablet 06/18/18 - AMA Did Patient Leave Against Medical Advice: No
== END 2018-06-19 09:45 | disposition home or self-care (01) | DRG 774 ==
LOC: YASAS 13:31 → Y3N 20:13
PROC: HZ2ZZZZ Detoxification Services for Substance Abuse Treatment (ICD-10-PCS; principal; 2018-06-15)
DX: F10.230 Alcohol dependence with withdrawal, uncomplicated (principal); F14.20 Cocaine dependence, uncomplicated; F17.210 Nicotine dependence, cigarettes, uncomplicated; F25.9 Schizoaffective disorder, unspecified; F31.9 Bipolar disorder, unspecified; I10 Essential (primary) hypertension; J45.909 Unspecified asthma, uncomplicated; E83.51 Hypocalcemia; N28.9 Disorder of kidney and ureter, unspecified; E78.00 Pure hypercholesterolemia, unspecified; R00.0 Tachycardia, unspecified; Z91.14 Patient's other noncompliance with medication regimen; Z88.0 Allergy status to penicillin; Z88.1 Allergy status to other antibiotic agents; Z91.012 Allergy to eggs; Z91.5 Personal history of self-harm
CPT/HCPCS: 36415; 71046-TC-FY; 80053; 81003; 82962; 85027; 86593; 94640; J0735

== ENCOUNTER 2018-07-14 10:00 | Inpatient (IN) | payer OTHER ==
[2018-07-14 11:59] VITALS: BMI 27.4
--- NOTE | 2018-07-14 12:50 | HP ---
CIWA Score - Admission Criteria [facility]ASAS Guidelines: Admission for Medically Managed Detox: Requires at least one of the followin. CIWA greater than 12 2. Seizures within the past 24 hours 3. Delirium tremens within the past 24 hours 4. Hallucinations within the past 24 hours 5. Acute intervention needed for co occurring medical disorder 6. Acute intervention needed for co occurring psychiatric disorder 7. Severe withdrawal that cannot be handled at a lower level of care (continued vomiting, continued diarrhea, abnormal vital signs) requiring intravenous medication and/or fluids 8. Admission ROS S - HPI Chief Complaint: I need to get clean and try to stay sober. I was detox and released about a week ago. I am here for continued help. Allergies/Adverse Reactions: Allergies Allergy/AdvReac Type Severity Reaction Status Date / Time ciprofloxacin [From Cipro] Allergy Severe Verified 07/14/18 12:40 ciprofloxacin HCl Allergy Severe Verified 07/14/18 12:40 [From Cipro] egg Allergy Severe Verified 07/14/18 12:40 Penicillins Allergy Severe Verified 07/14/18 12:40 Sulfa (Sulfonamide Allergy Severe Verified 07/14/18 12:40 Antibiotics) History of Present Illness: pt is a 63yrold female with a history of alcohol and cocaine dependence seeking rehab for further treatment. Pt was detoxed a week ago at [facility] and discharged. Today pt states she is ready for rehab. Exam Limitations: No Limitations - Ebola screening Have you traveled outside of the country in the last 21 days: No Have you had contact with anyone from an Ebola affected area: No Have you been sick,other than usual withdrawal symptoms: No Do you have a fever: No - Review of Systems Constitutional: Changes in sleep EENT: reports: No Symptoms Reported, Blurred Vision, Nose Congestion Respiratory: reports: Cough Cardiac: reports: Lightheadedness GI: reports: Diarrhea, Poor Appetite, Poor Fluid Intake, Indigestion : reports: Other (h/o of kidney stones.) Musculoskeletal: reports: Back Pain, Joint Pain Integumentary: reports: No Symptoms Reported, Other (athletes feet/uses medicated cream) Neuro: reports: Headache Endocrine: reports: No Symptoms Reported Hematology: reports: No Symptoms Reported Psychiatric: reports: Judgement Intact, Mood/Affect Appropiate, Orientated x3, Agitated, Anxious Other Systems: Reviewed and Negative Patient History - Patient Medical History Hx Anemia: No Hx Asthma: Yes Hx Chronic Obstructive Pulmonary Disease (COPD): No Hx Cancer: No Hx Cardiac Disorders: No Hx Hypertension: Yes (non complaint with meds.) Hx Hypercholesterolemia: Yes Hx Pacemaker: No HX Cerebrovascular Accident: No Hx Seizures: No Hx Dementia: No Hx Diabetes: No Hx Gastrointestinal Disorders: No Hx Liver Disease: No Hx Genitourinary Disorders: No Hx Sexually Transmitted Disorders: No Hx Renal Disease (ESRD): No Hx Thyroid Disease: No Hx Human Immunodeficiency Virus (HIV): No (denies) Hx Hepatitis C: No (denies) Hx Depression: Yes Hx Suicide Attempt: Yes (Tried to overdose 15 yrs ago/ couple of months ago no s /h ideation today) Hx Bipolar Disorder: Yes (schizoaffective ) Hx Schizophrenia: Yes - Patient Surgical History Past Surgical History: Yes Hx Neurologic Surgery: No Hx Cataract Extraction: No Hx Cardiac Surgery: No Hx Lung Surgery: No Hx Breast Surgery: No Hx Breast Biopsy: No Hx Abdominal Surgery: No Hx Appendectomy: No Hx Cholecystectomy: No Hx Genitourinary Surgery: No Hx Section: No Hx Orthopedic Surgery: No Hx Hysterectomy: Yes Other Surgical History: Partial hysterectomy Anesthesia Reaction: No - PPD History Previous Implant?: Yes Documented Results: Positive w/proof Results: CXR -neg 08/2016 PPD to be Administered?: No - Reproductive History Patient is a Female of Child Bearing Age (11 -55 yrs old): No Last Menstrual Period: 08/30/96 - Smoking Cessation Smoking history: Current every day smoker Have you smoked in the past 12 months: Yes Aproximately how many cigarettes per day: 10 Cigars Per Day: 0 Hx Chewing Tobacco Use: No Initiated information on smoking cessation: Yes 'Breaking Loose' booklet given: 07/14/18 - Substance & Tx. History Hx Alcohol Use: Yes Hx Substance Use: Yes Substance Use Type: Alcohol, Cocaine Hx Substance Use Treatment: Yes (last detox 05/2018 at [facility]) - Substances Abused Alcohol Route: Oral Frequency: Daily Amount used: 1 PINT VODKA Age of first use: 20 Date of Last Use: 07/13/18 Cocaine Route: Inhalation Frequency: Daily Amount used: 1/2 GRAM Age of first use: 20 Date of Last Use: 07/12/18 Family Disease History - Family Disease History Family Disease History: Diabetes: Mother (asthma ), Respiratory: Mother Admission Physical Exam [facility] - Vital Signs Vital Signs: Vital Signs - 24 hr 07/14/18 11:56 Temperature 97.5 F L Pulse Rate 108 H Respiratory 18 Rate Blood Pressure 136/94 - Physical General Appearance: Yes: Appropriately Dressed, Mild Distress, Irritable, Sweating, Anxious HEENTM: Yes: Hearing grossly Normal, Normal Voice, Rhinorrhea Respiratory: Yes: Lungs Clear, Normal Breath Sounds, No Respiratory Distress Neck: Yes: No masses,lesions,Nodules Breast: Yes: Within Normal Limits Cardiology: Yes: Regular Rhythm, Regular Rate, S1, S2 Abdominal: Yes: Normal Bowel Sounds, Non Tender, Soft Genitourinary: Yes: Within Normal Limits Back: Yes: Normal Inspection Musculoskeletal: Yes: Back pain, Muscle Pain Extremities: Yes: Normal Capillary Refill, Normal Inspection, Non-Tender Neurological: Yes: Fully Oriented, Alert, Normal Response Integumentary: Yes: Normal Color Lymphatic: Yes: Within Normal Limits - Diagnostic (1) Bipolar 1 disorder Current Visit: No Status: Chronic (2) Bipolar disorder Current Visit: No Status: Chronic (3) Cocaine abuse, uncomplicated Current Visit: No Status: Chronic (4) GERD (gastroesophageal reflux disease) Current Visit: Yes Status: Chronic Qualifiers: Esophagitis presence: without esophagitis Qualified Code(s): K21.9 - Gastro -esophageal reflux disease without esophagitis (5) H/O sciatica Current Visit: Yes Status: Chronic Comment: on rt -ambulates with a cane (6) HTN (hypertension) Current Visit: Yes Status: Chronic Qualifiers: Hypertension type: essential hypertension Qualified Code(s): I10 - Essential (primary) hypertension (7) History of asthma Current Visit: No Status: Chronic (8) Nicotine dependence Current Visit: Yes Status: Chronic Qualifiers: Nicotine product type: cigarettes Substance use status: uncomplicated Qualified Code(s): F17.210 - Nicotine dependence, cigarettes, uncomplicated (9) Schizoaffective disorder Current Visit: Yes Status: Suspected Cleared for Admission [facility] - Detox or Rehab [facility] Level of Care: Medically Managed [facility] Breath Alcohol Content Breath Alcohol Content: 0 Urine Pregancy Test - Result Urine Test Results: Negative- NO Line Present Urine Drug Screen - Results Drug Screen Negative: No Urine Drug Screen Results: LASHELL-Cocaine, BZO-Benzodiazepines Inpatient Rehab Admission - Initial Determination Are CD services needed?: Yes Not in need of hospitalization: Yes - Rehab Admission Criteria Previous failed treatment: Yes Poor recovery environment: Yes Comorbidities: Yes Patient is meeting Inpatient Rehab admission criteria:: Yes
[2018-07-14] MEDS ORDERED: MAGNESIUM CITRATE 300 ML BOTTLE PO PRN (13:00)
[2018-07-14] MEDS ORDERED: IBUPROFEN 600 MG TABLET (FP) PO PRN ×2 (13:00→16:09)
[2018-07-14] MEDS ORDERED: P-EPHED 60MG/TRIPROLIDI 2.5MG TABLET PO PRN (13:00)
[2018-07-14] MEDS ORDERED: ACETAMINOPHEN 325 MG TABLET (FP) PO PRN (13:00)
[2018-07-14] MEDS ORDERED: MAGNESIUM HYDROX 2400MG/30ML ORAL SUSPENSION 30 ML CUP PO PRN (13:00)
[2018-07-14] MEDS ORDERED: LOPERAMIDE HCL 2 MG CAPSULE PO PRN (13:00)
[2018-07-14] MEDS ORDERED: guaiFENesin/D-METHORPHAN HB 10 ML UNIT-DOSE CUPS PO PRN (13:00)
[2018-07-14] MEDS ORDERED: MENTHOL/PHENOL 1 EACH UD MM PRN (13:00)
[2018-07-14] MEDS ORDERED: MAG HYDROX/AL HYDROX/SIMETH 30 ML UNIT-DOSE CUP PO PRN (13:00)
[2018-07-14 15:29] LABS: HEMATOCRIT 40.1 % (32.4-45.2); HEMOGLOBIN 13.7 GM/dL (10.7-15.3); MCH 32.9 pg (25.7-33.7); MCHC 34.1 g/dl (32.0-36.0); MEAN CELL VOLUME 96.6 fl (80-96); MEAN PLT VOLUME 8.3 fl (7.5-11.1); PLATELET COUNT 296 K/MM3 (134-434); RBC 4.15 M/mm3 (3.60-5.2); RDW 13.9 % (11.6-15.6); WHITE BLOOD COUNT 6.2 K/mm3 (4.0-10.0)
[2018-07-14 16:03] LABS: ALBUMIN 4.1 g/dl (3.4-5.0); ALK PHOS 89 U/L (45-117); ANION GAP 6 MMOL/L (8-16); BILIRUBIN,TOTAL 0.5 mg/dL (0.2-1); BLOOD UREA NITROGEN 39 mg/dL (7-18); CALCIUM 9.8 mg/dL (8.5-10.1); CHLORIDE 110 mmol/L (98-107); CO2 26 mmol/L (21-32); CREATININE 1.5 mg/dL (0.55-1.3); GLUCOSE,RANDOM 87 mg/dL (74-106); POTASSIUM 4.3 mmol/L (3.5-5.1); SGOT/AST 25 U/L (15-37); SGPT/ALT 37 U/L (13-61); SODIUM 143 mmol/L (136-145); TOT PROT 8.6 g/dl (6.4-8.2)
[2018-07-14] MEDS ORDERED: PATIENT'S OWN MEDICATION (NON-FORMULARY) (Diclofenac Sodium [Voltaren] 100 GM) TP SCH (22:00)
[2018-07-14] MEDS ORDERED: QUEtiapine FUMARATE 50 MG TABLET PO SCH (22:00)
[2018-07-14] MEDS ORDERED: MELATONIN 5 MG TABLETS PO PRN (22:00)
--- NOTE | 2018-07-14 22:04 | PN ---
[facility] Progress Note Note: Psychiatrist electronic warfare officer: As per nursing report patient started on preadmission medications: Trazodone 150mg po qhs Seroquel 100mg po qhs Gabapentin 300mg ppo tid
[2018-07-14] MEDS: GABAPENTIN 300 MG CAPSULE (FP) PO SCH (22:38)
[2018-07-14] MEDS: traZODone HCL 50 MG TABLET (FP) PO SCH (22:39)
[2018-07-14] MEDS: CLOTRIMAZOLE TP SCH (22:39)
[2018-07-14] MEDS: CICLOPIROX OLAMINE TP SCH (22:39)
[2018-07-14] MEDS: ATORVASTATIN CA 40 MG TABLET (FP) PO SCH (22:39)
[2018-07-14] MEDS: THIAMINE HCL 100 MG TABLET (FP) PO SCH (22:39)
[2018-07-14] MEDS ORDERED: PT OWN MED DRAWER 7, Y5N ONE (23:32)
[2018-07-15] MEDS: GABAPENTIN 300 MG CAPSULE (FP) PO SCH ×3 (06:48→21:36)
[2018-07-15] MEDS: hydrOXYzine PAMOATE 50 MG CAPSULE (FP) PO PRN ×2 (06:50→19:08)
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
[2018-07-15] MEDS ORDERED: PT OWN MED DRAWER 7, Y5N ONE ×3 (09:13→15:40)
[2018-07-15] MEDS: amLODIPine BESYLATE 5 MG TABLET (FP) PO SCH (09:39)
[2018-07-15] MEDS: PRENATAL VITAMINS W/ FOLIC ACID TABLET (FP) PO SCH (09:39)
[2018-07-15] MEDS: CLOTRIMAZOLE TP SCH (09:40)
[2018-07-15] MEDS: QUEtiapine FUMARATE 100 MG TABLET (FP) PO SCH (10:19)
[2018-07-15] MEDS: CICLOPIROX OLAMINE TP SCH (10:27)
[2018-07-15] MEDS: PANTOPRAZOLE 40 MG TABLET (FP) PO SCH (14:00)
[2018-07-15] MEDS: COLLOIDAL OATMEAL 1 BAR EACH TP PRN (14:02)
[2018-07-15] MEDS: CYCLOBENZAPRINE HCL 10 MG TABLET (FP) PO PRN ×2 (14:02→21:36)
--- NOTE | 2018-07-15 14:54 | EKG ---
Test Reason : Blood Pressure : / mmHG Vent. Rate : 100 BPM Atrial Rate : 100 BPM P-R Int : 156 ms QRS Dur : 084 ms QT Int : 374 ms P-R-T Axes : 047 -04 046 degrees QTc Int : 482 ms NORMAL SINUS RHYTHM CANNOT RULE OUT ANTERIOR INFARCT , AGE UNDETERMINED ABNORMAL ECG WHEN COMPARED WITH ECG OF 02-SEP-2016 15:51, NO SIGNIFICANT CHANGE WAS FOUND Confirmed by BRAYDEN ALLEN, CLINT ([id number]) on 07/15/2018 2:54:40 PM Referred By: Confirmed By:CLINT OWEN MD
[2018-07-15 15:16] LABS: URINE APPEARANCE SLCLOUDY; URINE BILIRUBIN NEGATIVE (<2.0 mg/dL); URINE COLOR YELLOW; URINE GLUCOSE (UA) NEGATIVE (NEGATIVE); URINE KETONE NEGATIVE (NEGATIVE); URINE LEUK ESTERASE 1+ (NEGATIVE); URINE NITRITE NEGATIVE (NEGATIVE); URINE PROTEIN NEGATIVE (NEGATIVE); URINE UROBILINOGEN NEGATIVE mg/dL (0.2-1.0)
[2018-07-15 16:07] LABS: EPI CELLS RARE /HPF (FEW); URINE BACTERIA FEW /hpf (NONE SEEN); URINE HYALINE CAST 2 /lpf; URINE MUCUS RARE
[2018-07-15] MEDS: THIAMINE HCL 100 MG TABLET (FP) PO SCH (21:35)
[2018-07-15] MEDS: traZODone HCL 50 MG TABLET (FP) PO SCH (21:36)
[2018-07-15] MEDS: ATORVASTATIN CA 40 MG TABLET (FP) PO SCH (21:36)
[2018-07-15] MEDS: QUEtiapine FUMARATE 200 MG TABLET PO SCH (21:37)
[2018-07-15] MEDS: CLOTRIMAZOLE 1% 10 ML TOPICAL SOLUTION TP SCH (21:38)
[2018-07-15] MEDS ORDERED: QUEtiapine FUMARATE 50 MG TABLET PO SCH (22:00)
[2018-07-16] MEDS: hydrOXYzine PAMOATE 50 MG CAPSULE (FP) PO PRN ×2 (06:37→12:43)
[2018-07-16] MEDS: GABAPENTIN 300 MG CAPSULE (FP) PO SCH ×3 (06:37→21:03)
[2018-07-16] MEDS: CYCLOBENZAPRINE HCL 10 MG TABLET (FP) PO PRN ×2 (08:33→21:03)
[2018-07-16] MEDS: CLOTRIMAZOLE 1% 10 ML TOPICAL SOLUTION TP SCH ×2 (09:15→21:02)
[2018-07-16] MEDS: PRENATAL VITAMINS W/ FOLIC ACID TABLET (FP) PO SCH (09:16)
[2018-07-16] MEDS: QUEtiapine FUMARATE 100 MG TABLET (FP) PO SCH (09:16)
[2018-07-16] MEDS: amLODIPine BESYLATE 5 MG TABLET (FP) PO SCH (09:16)
[2018-07-16] MEDS: PANTOPRAZOLE 40 MG TABLET (FP) PO SCH (09:16)
[2018-07-16] MEDS: NICOTINE POLACRILEX 4 MG GUM BUC PRN ×2 (09:21→16:57)
[2018-07-16] MEDS ORDERED: PT OWN MED DRAWER 7, Y5N ONE (13:45)
--- NOTE | 2018-07-16 13:52 | PN ---
[facility] Progress Note Note: Laboratory Tests 07/14/18 07/14/18 07/14/18 13:20 13:20 13:20 WBC 6.2 RBC 4.15 Hgb 13.7 Hct 40.1 MCV 96.6 H MCH 32.9 MCHC 34.1 RDW 13.9 Plt Count 296 MPV 8.3 Sodium 143 Potassium 4.3 Chloride 110 H Carbon Dioxide 26 Anion Gap 6 L BUN 39 H Creatinine 1.5 H Creat Clearance w eGFR 35.30 Random Glucose 87 Calcium 9.8 Total Bilirubin 0.5 AST 25 ALT 37 Alkaline Phosphatase 89 Total Protein 8.6 H Albumin 4.1 Urine Color Urine Appearance Urine pH Ur Specific [place] Urine Protein Urine Glucose (UA) Urine Ketones Urine Blood Urine Nitrite Urine Bilirubin Urine Urobilinogen Ur Leukocyte Esterase Urine WBC (Auto) Urine RBC (Auto) Ur Epithelial Cells Urine Bacteria Hyaline Casts Urine Mucus RPR Titer Nonreactive 07/15/18 11:10 WBC RBC Hgb Hct MCV MCH MCHC RDW Plt Count MPV Sodium Potassium Chloride Carbon Dioxide Anion Gap BUN Creatinine Creat Clearance w eGFR Random Glucose Calcium Total Bilirubin AST ALT Alkaline Phosphatase Total Protein Albumin Urine Color Yellow Urine Appearance Slcloudy Urine pH 6.0 Ur Specific [place] 1.021 Urine Protein Negative Urine Glucose (UA) Negative Urine Ketones Negative Urine Blood Negative Urine Nitrite Negative Urine Bilirubin Negative Urine Urobilinogen Negative Ur Leukocyte Esterase 1+ H Urine WBC (Auto) 5 Urine RBC (Auto) 1 Ur Epithelial Cells Rare Urine Bacteria Few Hyaline Casts 2 Urine Mucus Rare RPR Titer LABS NOTED. PATIENT'S PREVIOUS LABS COMPARED AND SIMILAR RESULTS NOTED. WILL REPEAT CMP ON 07/20/18 TO FOLLOW UP BUN/CR/GFR.
[2018-07-16] MEDS: ATORVASTATIN CA 40 MG TABLET (FP) PO SCH (21:03)
[2018-07-16] MEDS: QUEtiapine FUMARATE 200 MG TABLET PO SCH (21:03)
[2018-07-16] MEDS: THIAMINE HCL 100 MG TABLET (FP) PO SCH (21:03)
[2018-07-16] MEDS: traZODone HCL 50 MG TABLET (FP) PO SCH (21:03)
[2018-07-17] MEDS: hydrOXYzine PAMOATE 50 MG CAPSULE (FP) PO PRN ×2 (06:48→21:12)
[2018-07-17] MEDS: GABAPENTIN 300 MG CAPSULE (FP) PO SCH ×3 (06:48→21:09)
[2018-07-17] MEDS: NICOTINE POLACRILEX 4 MG GUM BUC PRN (06:54)
[2018-07-17] MEDS: amLODIPine BESYLATE 5 MG TABLET (FP) PO SCH (09:55)
[2018-07-17] MEDS: PRENATAL VITAMINS W/ FOLIC ACID TABLET (FP) PO SCH (09:55)
[2018-07-17] MEDS: QUEtiapine FUMARATE 100 MG TABLET (FP) PO SCH (09:55)
[2018-07-17] MEDS: PANTOPRAZOLE 40 MG TABLET (FP) PO SCH (09:55)
[2018-07-17] MEDS: CYCLOBENZAPRINE HCL 10 MG TABLET (FP) PO PRN (09:57)
[2018-07-17] MEDS: LIDOCAINE 5% TOPICAL PATCH TP SCH (09:57)
[2018-07-17] MEDS ORDERED: TOLNAFTATE 1% CREAM 15 GM TUBE TP SCH ×2 (10:00→10:59)
[2018-07-17] MEDS: METHYL SALICYLATE/MENTHOL OINT 30 GM TUBE TP SCH ×2 (11:08→21:12)
--- NOTE | 2018-07-17 11:11 | PN ---
S Progress Note Note: PT C/O BACK/LEG PAIN, ITCHY FEET AND REQUESTING FOOT CREAM. ALSO REPORTS SHE USES BALM FOR HER CHRONIC KNEE PAIN AND WOULD LIKE TO CONTINUE. PT USES CANE FOR AMBULATION. Vital Signs - 24 hr 07/17/18 07/17/18 07/17/18 00:30 03:30 07:36 Temperature 97.9 F Pulse Rate 104 H Respiratory 16 16 18 Rate Blood Pressure 124/84 PLAN:CONTINUE WITH CLOTRIMAZOLE CREAM PREVIOUSLY SEEN AND ORDERED. ANALGESIC BALM APPLY TO AFFECTED KNEES DIRECTED. LIDOCAINE PATCH 5% APPLY TO BACK DIRECTED.
[2018-07-17] MEDS: CLOTRIMAZOLE 1% 10 ML TOPICAL SOLUTION TP SCH ×2 (12:19→21:09)
--- NOTE | 2018-07-17 16:33 | PN ---
Psychiatric Progress Note Vital Signs: Vital Signs Period Temp Pulse Resp BP Sys/Gordon Pulse Ox Last 24 Hr 97.9 F 99-104 16-18 124-124/83-84 Date of Session: 07/17/18 Chief Complaint:: I am still not sleeping and having mood swings. HPI: Patient addressed Alcohol,Cocaine dependence comorbid with Schizoaffective disorder. ROS: Significant for GERD,HTN,Disk disease. Current Medications: Active Medications Generic Name Dose Route Start Last Admin Trade Name Freq PRN Reason Stop Dose Admin Acetaminophen 650 mg 07/14/18 13:00 Tylenol - PO Q4H PRN FEVER Al Hydroxide/Mg Hydroxide 30 ml 07/14/18 13:00 07/14/18 21:50 Mylanta Oral Suspension - PO 30 ml Q6H PRN Administration DYSPEPSIA Albuterol Sulfate 2 puff 07/14/18 13:02 Ventolin Hfa Inhaler - IH Q4H PRN ASTHMA Amlodipine Besylate 5 mg 07/15/18 10:00 07/17/18 09:55 Norvasc - PO 5 mg DAILY NATASHA Administration Atorvastatin Calcium 40 mg 07/14/18 22:00 07/16/18 21:03 Lipitor - PO 40 mg HS NATASHA Administration Bupropion HCl 150 mg 07/15/18 10:00 07/17/18 09:55 Wellbutrin Xl - PO 150 mg DAILY NATASHA Administration Clotrimazole 1 applic 07/15/18 22:00 07/17/18 12:19 Clotrimazole TP Not Given BID NATASHA Colloidal Oatmeal 1 applic 07/15/18 13:32 07/15/18 14:02 Aveeno Soap - TP 1 bar DAILY PRN Administration HYGEINE Cyclobenzaprine HCl 10 mg 07/15/18 13:33 07/17/18 09:57 Flexeril - PO 10 mg TID PRN Administration MUSCLE SPASMS Eucalyptus/Menthol/Phenol/Sorbitol 1 each 07/14/18 13:00 Cepastat Lozenge - MM Q4H PRN SORE THROAT Gabapentin 300 mg 07/14/18 22:30 07/17/18 14:13 Neurontin - PO 300 mg TID NATASHA Administration Guaifenesin 10 ml 07/14/18 13:00 Robitussin Dm - PO Q6H PRN COUGH Hydroxyzine Pamoate 50 mg 07/14/18 13:00 07/17/18 06:48 Vistaril - PO 50 mg Q4H PRN Administration AGITATION Ibuprofen 600 mg 07/14/18 16:09 Motrin - PO Q6H PRN Pain level 4-6 Lidocaine 1 patch 07/17/18 10:00 07/17/18 09:57 Lidoderm Patch - TP 1 patch DAILY NATASHA Administration Loperamide HCl 4 mg 07/14/18 13:00 Imodium - PO Q6H PRN DIARRHEA Magnesium Citrate 300 ml 07/14/18 13:00 Citroma - PO Q48H PRN CONSTIPATION Magnesium Hydroxide 30 ml 07/14/18 13:00 Milk Of Magnesia - PO DAILY PRN CONSTIPATION Melatonin 5 mg 07/14/18 22:00 Melatonin PO HS PRN INSOMNIA Methyl Salicylate 1 applic 07/17/18 10:00 07/17/18 11:08 Jose-Mooney - TP 1 applic BID NATASHA Administration Miscellaneous 1 each 07/17/18 22:00 Lidoderm Patch Removal MC DAILY@2200 NATASHA Nicotine Polacrilex 4 mg 07/14/18 13:00 07/17/18 06:54 Nicorette Gum - BUC 4 mg Q2H PRN Administration NICOTINE REPLACEMENT RX Pantoprazole Sodium 40 mg 07/15/18 13:45 07/17/18 09:55 Protonix - PO 40 mg DAILY NATASHA Administration Multivit/Folic Acid/Iron 1 tab 07/15/18 10:00 07/17/18 09:55 Vitamins (Sjr) - PO 1 tab DAILY NATASHA Administration Pseudoephedrine/Triprolidine 1 combo 07/14/18 13:00 Actifed - PO TID PRN NASAL CONGESTION Quetiapine Fumarate 100 mg 07/15/18 10:00 07/17/18 09:55 Seroquel - PO 100 mg DAILY NATASHA Administration Quetiapine Fumarate 300 mg 07/17/18 16:20 Seroquel - PO HS NATASHA Thiamine HCl 100 mg 07/14/18 22:00 07/16/18 21:03 Vitamin B1 - PO 100 mg HS NATASHA Administration Trazodone HCl 150 mg 07/14/18 22:30 07/16/18 21:03 Desyrel - PO 150 mg HS NATASHA Administration Current Side Effect: No Lab tests ordered: No Lab tests reviewed: Yes Provider note:: Chart was revuewed,patient was evaluated to address ongoing sleeping difficulties,mood instability.She reports that she was responded well to Seroquel 300 mg po hs in the past.Properties of Seroquel has been discussed with the patient including side effects,benefits and dose adjustemnt.SEroquel 200 mg po hs will be adjusted to 300 mg po hs.Continue Seroquel 100 mg po daily, Neurontin 300 mg po tid and Wellbutrin 150 mg po am. Supportive therapy provided. Mental Status Exam - Mental Status Exam Alert and Oriented to: Time, Place, Person Cognitive Function: Grossly Intact Patient Appearance: Unkempt Mood: Sad, Anxious Affect: Mood Congruent, Labile Patient Behavior: Cooperative Speech Pattern: Clear Voice Loudness: Mildly Loud Thought Process: Goal Oriented Thought Disorder: Not Present Hallucinations: Denies Suicidal Ideation: Denies Homicidal Ideation: Denies Insight/Judgement: Fair Sleep: Difficulty falling asleep Appetite: Fair Muscle strength/Tone: Normal Gait/Station: Normal Psychiatric Treatment Plan - Problem List (1) GERD (gastroesophageal reflux disease) Current Visit: Yes Qualifiers: Esophagitis presence: without esophagitis Qualified Code(s): K21.9 - Gastro -esophageal reflux disease without esophagitis (2) H/O sciatica Current Visit: Yes Comment: on rt -ambulates with a cane (3) HTN (hypertension) Current Visit: Yes Qualifiers: Hypertension type: essential hypertension Qualified Code(s): I10 - Essential (primary) hypertension (4) Nicotine dependence Current Visit: Yes Qualifiers: Nicotine product type: cigarettes Substance use status: uncomplicated Qualified Code(s): F17.210 - Nicotine dependence, cigarettes, uncomplicated (5) Bipolar disorder Current Visit: Yes (6) Cocaine abuse, uncomplicated Current Visit: Yes (7) Alcohol dependence Current Visit: Yes (8) History of asthma Current Visit: Yes (9) Schizoaffective disorder Current Visit: Yes
[2018-07-17] MEDS: LIDOCAINE PATCH REMOVAL MC SCH (21:09)
[2018-07-17] MEDS: ATORVASTATIN CA 40 MG TABLET (FP) PO SCH (21:09)
[2018-07-17] MEDS: THIAMINE HCL 100 MG TABLET (FP) PO SCH (21:09)
[2018-07-17] MEDS: traZODone HCL 50 MG TABLET (FP) PO SCH (21:09)
[2018-07-17] MEDS: QUEtiapine FUMARATE 300 MG TABLET PO SCH (21:11)
[2018-07-18] MEDS: GABAPENTIN 300 MG CAPSULE (FP) PO SCH ×3 (06:53→21:20)
[2018-07-18] MEDS: hydrOXYzine PAMOATE 50 MG CAPSULE (FP) PO PRN ×3 (06:55→21:20)
[2018-07-18] MEDS: CYCLOBENZAPRINE HCL 10 MG TABLET (FP) PO PRN ×3 (06:55→21:20)
[2018-07-18] MEDS: NICOTINE POLACRILEX 4 MG GUM BUC PRN (08:56)
[2018-07-18] MEDS: LIDOCAINE 5% TOPICAL PATCH TP SCH (09:53)
[2018-07-18] MEDS: QUEtiapine FUMARATE 100 MG TABLET (FP) PO SCH (09:54)
[2018-07-18] MEDS: PRENATAL VITAMINS W/ FOLIC ACID TABLET (FP) PO SCH (09:54)
[2018-07-18] MEDS: PANTOPRAZOLE 40 MG TABLET (FP) PO SCH (09:54)
[2018-07-18] MEDS: amLODIPine BESYLATE 5 MG TABLET (FP) PO SCH (09:54)
[2018-07-18] MEDS: CLOTRIMAZOLE 1% 10 ML TOPICAL SOLUTION TP SCH ×2 (09:55→21:21)
[2018-07-18] MEDS: METHYL SALICYLATE/MENTHOL OINT 30 GM TUBE TP SCH ×2 (09:55→21:21)
[2018-07-18] MEDS: QUEtiapine FUMARATE 300 MG TABLET PO SCH (21:20)
[2018-07-18] MEDS: traZODone HCL 50 MG TABLET (FP) PO SCH (21:20)
[2018-07-18] MEDS: ATORVASTATIN CA 40 MG TABLET (FP) PO SCH (21:20)
[2018-07-18] MEDS: LIDOCAINE PATCH REMOVAL MC SCH (21:21)
[2018-07-18] MEDS: THIAMINE HCL 100 MG TABLET (FP) PO SCH (21:21)
[2018-07-19] MEDS: GABAPENTIN 300 MG CAPSULE (FP) PO SCH ×3 (07:01→21:22)
[2018-07-19] MEDS: ALBUTEROL SO4 8 GM HFA INHALER IH PRN (08:16)
[2018-07-19] MEDS: PANTOPRAZOLE 40 MG TABLET (FP) PO SCH (09:43)
[2018-07-19] MEDS: PRENATAL VITAMINS W/ FOLIC ACID TABLET (FP) PO SCH (09:43)
[2018-07-19] MEDS: amLODIPine BESYLATE 5 MG TABLET (FP) PO SCH (09:43)
[2018-07-19] MEDS: QUEtiapine FUMARATE 100 MG TABLET (FP) PO SCH (09:43)
[2018-07-19] MEDS: METHYL SALICYLATE/MENTHOL OINT 30 GM TUBE TP SCH ×2 (09:44→21:24)
[2018-07-19] MEDS: CLOTRIMAZOLE 1% 10 ML TOPICAL SOLUTION TP SCH ×2 (09:44→21:24)
[2018-07-19] MEDS: LIDOCAINE 5% TOPICAL PATCH TP SCH (09:44)
[2018-07-19] MEDS: NICOTINE POLACRILEX 4 MG GUM BUC PRN ×2 (10:02→12:10)
[2018-07-19] MEDS: hydrOXYzine PAMOATE 50 MG CAPSULE (FP) PO PRN ×3 (12:09→21:22)
[2018-07-19] MEDS: CYCLOBENZAPRINE HCL 10 MG TABLET (FP) PO PRN ×2 (14:18→21:23)
[2018-07-19] MEDS: QUEtiapine FUMARATE 300 MG TABLET PO SCH (21:22)
[2018-07-19] MEDS: THIAMINE HCL 100 MG TABLET (FP) PO SCH (21:22)
[2018-07-19] MEDS: traZODone HCL 50 MG TABLET (FP) PO SCH (21:23)
[2018-07-19] MEDS: ATORVASTATIN CA 40 MG TABLET (FP) PO SCH (21:23)
[2018-07-19] MEDS: LIDOCAINE PATCH REMOVAL MC SCH (21:24)
[2018-07-20] MEDS: GABAPENTIN 300 MG CAPSULE (FP) PO SCH ×3 (06:17→21:36)
[2018-07-20] MEDS ORDERED: PT OWN MED DRAWER 7, Y5N ONE (08:51)
[2018-07-20] MEDS: amLODIPine BESYLATE 5 MG TABLET (FP) PO SCH (09:56)
[2018-07-20] MEDS: PRENATAL VITAMINS W/ FOLIC ACID TABLET (FP) PO SCH (09:56)
[2018-07-20] MEDS: QUEtiapine FUMARATE 100 MG TABLET (FP) PO SCH (09:56)
[2018-07-20] MEDS: PANTOPRAZOLE 40 MG TABLET (FP) PO SCH (09:57)
[2018-07-20] MEDS: METHYL SALICYLATE/MENTHOL OINT 30 GM TUBE TP SCH ×2 (09:58→21:38)
[2018-07-20] MEDS: CLOTRIMAZOLE 1% 10 ML TOPICAL SOLUTION TP SCH ×2 (09:58→21:38)
[2018-07-20] MEDS: LIDOCAINE 5% TOPICAL PATCH TP SCH (09:59)
[2018-07-20 13:00] LABS: ALBUMIN 3.8 g/dl (3.4-5.0); ALK PHOS 86 U/L (45-117); ANION GAP 4 MMOL/L (8-16); BILIRUBIN,TOTAL 0.3 mg/dL (0.2-1); BLOOD UREA NITROGEN 23 mg/dL (7-18); CHLORIDE 105 mmol/L (98-107); CO2 31 mmol/L (21-32); CREATININE 1.5 mg/dL (0.55-1.3); GLUCOSE,RANDOM 119 mg/dL (74-106); POTASSIUM 4.4 mmol/L (3.5-5.1); SGOT/AST 21 U/L (15-37); SGPT/ALT 42 U/L (13-61); SODIUM 139 mmol/L (136-145); TOT PROT 7.8 g/dl (6.4-8.2)
[2018-07-20] MEDS: hydrOXYzine PAMOATE 50 MG CAPSULE (FP) PO PRN ×2 (13:42→21:37)
[2018-07-20] MEDS: ALBUTEROL SO4 8 GM HFA INHALER IH PRN (13:43)
--- NOTE | 2018-07-20 13:59 | PN ---
S Progress Note Note: C/O DRY EYES. DENIES DISCHARGE, REDNESS OR BURNING SENSATION. Vital Signs - 24 hr 07/20/18 07/20/18 07/20/18 00:30 03:30 07:17 Temperature 97.7 F Pulse Rate 96 H Respiratory 18 18 18 Rate Blood Pressure 116/89 07/20/18 10:00 Temperature Pulse Rate 116 H Respiratory Rate Blood Pressure 132/73 Laboratory Tests 07/14/18 07/14/18 07/14/18 13:20 13:20 13:20 WBC 6.2 RBC 4.15 Hgb 13.7 Hct 40.1 MCV 96.6 H MCH 32.9 MCHC 34.1 RDW 13.9 Plt Count 296 MPV 8.3 Sodium 143 Potassium 4.3 Chloride 110 H Carbon Dioxide 26 Anion Gap 6 L BUN 39 H Creatinine 1.5 H Creat Clearance w eGFR 35.30 Random Glucose 87 Calcium 9.8 Total Bilirubin 0.5 AST 25 ALT 37 Alkaline Phosphatase 89 Total Protein 8.6 H Albumin 4.1 Urine Color Urine Appearance Urine pH Ur Specific [place] Urine Protein Urine Glucose (UA) Urine Ketones Urine Blood Urine Nitrite Urine Bilirubin Urine Urobilinogen Ur Leukocyte Esterase Urine WBC (Auto) Urine RBC (Auto) Ur Epithelial Cells Urine Bacteria Hyaline Casts Urine Mucus RPR Titer Nonreactive 07/15/18 07/20/18 11:10 08:35 WBC RBC Hgb Hct MCV MCH MCHC RDW Plt Count MPV Sodium 139 Potassium 4.4 Chloride 105 Carbon Dioxide 31 Anion Gap 4 L BUN 23 H Creatinine 1.5 H Creat Clearance w eGFR 35.30 Random Glucose 119 H Calcium 9.0 Total Bilirubin 0.3 AST 21 ALT 42 Alkaline Phosphatase 86 Total Protein 7.8 Albumin 3.8 Urine Color Yellow Urine Appearance Slcloudy Urine pH 6.0 Ur Specific [place] 1.021 Urine Protein Negative Urine Glucose (UA) Negative Urine Ketones Negative Urine Blood Negative Urine Nitrite Negative Urine Bilirubin Negative Urine Urobilinogen Negative Ur Leukocyte Esterase 1+ H Urine WBC (Auto) 5 Urine RBC (Auto) 1 Ur Epithelial Cells Rare Urine Bacteria Few Hyaline Casts 2 Urine Mucus Rare RPR Titer A:DRY EYE SYNDROME PLAN:ARTIFICIAL TEARS DIRECTED.
[2018-07-20] MEDS: CYCLOBENZAPRINE HCL 10 MG TABLET (FP) PO PRN ×2 (14:00→21:36)
[2018-07-20] MEDS: ARTIFICIAL TEARS (POLYVINYL ALCOHOL) OPTH DROPS OU SCH ×2 (15:00→21:39)
[2018-07-20] MEDS: ATORVASTATIN CA 40 MG TABLET (FP) PO SCH (21:36)
[2018-07-20] MEDS: THIAMINE HCL 100 MG TABLET (FP) PO SCH (21:36)
[2018-07-20] MEDS: traZODone HCL 50 MG TABLET (FP) PO SCH (21:37)
[2018-07-20] MEDS: QUEtiapine FUMARATE 300 MG TABLET PO SCH (21:37)
[2018-07-20] MEDS: LIDOCAINE PATCH REMOVAL MC SCH (21:38)
[2018-07-21] MEDS: GABAPENTIN 300 MG CAPSULE (FP) PO SCH ×3 (06:48→21:10)
[2018-07-21] MEDS: hydrOXYzine PAMOATE 50 MG CAPSULE (FP) PO PRN ×2 (06:48→13:32)
[2018-07-21] MEDS: CYCLOBENZAPRINE HCL 10 MG TABLET (FP) PO PRN (06:49)
[2018-07-21] MEDS: ARTIFICIAL TEARS (POLYVINYL ALCOHOL) OPTH DROPS OU SCH ×3 (06:49→21:12)
[2018-07-21] MEDS ORDERED: PT OWN MED DRAWER 7, Y5N ONE ×2 (08:50→12:52)
[2018-07-21] MEDS: CLOTRIMAZOLE 1% 10 ML TOPICAL SOLUTION TP SCH ×2 (09:54→21:12)
[2018-07-21] MEDS: QUEtiapine FUMARATE 100 MG TABLET (FP) PO SCH (09:54)
[2018-07-21] MEDS: PANTOPRAZOLE 40 MG TABLET (FP) PO SCH (09:54)
[2018-07-21] MEDS: PRENATAL VITAMINS W/ FOLIC ACID TABLET (FP) PO SCH (09:54)
[2018-07-21] MEDS: amLODIPine BESYLATE 5 MG TABLET (FP) PO SCH (09:54)
[2018-07-21] MEDS: LIDOCAINE 5% TOPICAL PATCH TP SCH (09:55)
[2018-07-21] MEDS: METHYL SALICYLATE/MENTHOL OINT 30 GM TUBE TP SCH ×2 (09:55→21:12)
--- NOTE | 2018-07-21 11:44 | PN ---
[facility] Progress Note Note: PATIENT REQUESTED TO REVIEW LABS WITH PROVIDER. PATIENT STATES " I WOULD LIKE TO SEE HOW MY KIDNEYS ARE BECAUSE I HAVE H/O KIDNEY STONES." Vital Signs Temperature 97.8 F 07/21/18 07:15 Pulse Rate 108 H 07/21/18 09:19 Respiratory Rate 17 07/21/18 09:19 Blood Pressure 102/69 07/21/18 09:19 O2 Sat by Pulse Oximetry (%) Laboratory Tests 07/14/18 07/14/18 07/14/18 13:20 13:20 13:20 WBC 6.2 RBC 4.15 Hgb 13.7 Hct 40.1 MCV 96.6 H MCH 32.9 MCHC 34.1 RDW 13.9 Plt Count 296 MPV 8.3 Sodium 143 Potassium 4.3 Chloride 110 H Carbon Dioxide 26 Anion Gap 6 L BUN 39 H Creatinine 1.5 H Creat Clearance w eGFR 35.30 Random Glucose 87 Calcium 9.8 Total Bilirubin 0.5 AST 25 ALT 37 Alkaline Phosphatase 89 Total Protein 8.6 H Albumin 4.1 Urine Color Urine Appearance Urine pH Ur Specific [place] Urine Protein Urine Glucose (UA) Urine Ketones Urine Blood Urine Nitrite Urine Bilirubin Urine Urobilinogen Ur Leukocyte Esterase Urine WBC (Auto) Urine RBC (Auto) Ur Epithelial Cells Urine Bacteria Hyaline Casts Urine Mucus RPR Titer Nonreactive 07/15/18 07/20/18 11:10 08:35 WBC RBC Hgb Hct MCV MCH MCHC RDW Plt Count MPV Sodium 139 Potassium 4.4 Chloride 105 Carbon Dioxide 31 Anion Gap 4 L BUN 23 H Creatinine 1.5 H Creat Clearance w eGFR 35.30 Random Glucose 119 H Calcium 9.0 Total Bilirubin 0.3 AST 21 ALT 42 Alkaline Phosphatase 86 Total Protein 7.8 Albumin 3.8 Urine Color Yellow Urine Appearance Slcloudy Urine pH 6.0 Ur Specific [place] 1.021 Urine Protein Negative Urine Glucose (UA) Negative Urine Ketones Negative Urine Blood Negative Urine Nitrite Negative Urine Bilirubin Negative Urine Urobilinogen Negative Ur Leukocyte Esterase 1+ H Urine WBC (Auto) 5 Urine RBC (Auto) 1 Ur Epithelial Cells Rare Urine Bacteria Few Hyaline Casts 2 Urine Mucus Rare RPR Titer PE: PATIENT IS ALERT AND ORIENTED X 3 SKIN WARM AND DRY CAR S1S2 RESP CTA BL EXT FULL ROM AMB AD SHANNON A/P: ELEVATED BUN/CR DECREASED GFR PATIENT STRONGLY ADVISED AFTER EXPLAINING ALL LABS TO FOLLOW UP WITH PCP FOR NEPHROLOGY/UROLOGY CONSULT ENCOURAGE ORAL FLUIDS MED LIST REVIEWED, MAGNESIUM PRODUCTS D/C CONTINUE TO MONITOR CLINICALLY
[2018-07-21] MEDS: NICOTINE POLACRILEX 4 MG GUM BUC PRN ×2 (12:30→21:20)
[2018-07-21] MEDS: traZODone HCL 50 MG TABLET (FP) PO SCH (21:10)
[2018-07-21] MEDS: QUEtiapine FUMARATE 300 MG TABLET PO SCH (21:10)
[2018-07-21] MEDS: ATORVASTATIN CA 40 MG TABLET (FP) PO SCH (21:10)
[2018-07-21] MEDS: THIAMINE HCL 100 MG TABLET (FP) PO SCH (21:10)
[2018-07-21] MEDS: LIDOCAINE PATCH REMOVAL MC SCH (21:11)
[2018-07-22] MEDS: hydrOXYzine PAMOATE 50 MG CAPSULE (FP) PO PRN ×3 (06:07→21:24)
[2018-07-22] MEDS: CYCLOBENZAPRINE HCL 10 MG TABLET (FP) PO PRN ×2 (06:07→21:24)
[2018-07-22] MEDS: ARTIFICIAL TEARS (POLYVINYL ALCOHOL) OPTH DROPS OU SCH ×3 (06:07→21:25)
[2018-07-22] MEDS: GABAPENTIN 300 MG CAPSULE (FP) PO SCH ×3 (06:07→21:24)
[2018-07-22] MEDS: NICOTINE POLACRILEX 4 MG GUM BUC PRN (06:07)
[2018-07-22] MEDS: ALBUTEROL SO4 8 GM HFA INHALER IH PRN (09:02)
[2018-07-22] MEDS: amLODIPine BESYLATE 5 MG TABLET (FP) PO SCH (09:53)
[2018-07-22] MEDS: PANTOPRAZOLE 40 MG TABLET (FP) PO SCH (09:53)
[2018-07-22] MEDS: PRENATAL VITAMINS W/ FOLIC ACID TABLET (FP) PO SCH (09:53)
[2018-07-22] MEDS: QUEtiapine FUMARATE 100 MG TABLET (FP) PO SCH (09:54)
[2018-07-22] MEDS: LIDOCAINE 5% TOPICAL PATCH TP SCH (09:56)
[2018-07-22] MEDS: METHYL SALICYLATE/MENTHOL OINT 30 GM TUBE TP SCH ×2 (09:56→21:25)
[2018-07-22] MEDS: CLOTRIMAZOLE 1% 10 ML TOPICAL SOLUTION TP SCH ×2 (09:56→21:25)
[2018-07-22] MEDS: QUEtiapine FUMARATE 300 MG TABLET PO SCH (21:24)
[2018-07-22] MEDS: THIAMINE HCL 100 MG TABLET (FP) PO SCH (21:24)
[2018-07-22] MEDS: ATORVASTATIN CA 40 MG TABLET (FP) PO SCH (21:24)
[2018-07-22] MEDS: traZODone HCL 50 MG TABLET (FP) PO SCH (21:24)
[2018-07-22] MEDS: LIDOCAINE PATCH REMOVAL MC SCH (21:25)
[2018-07-23] MEDS: ARTIFICIAL TEARS (POLYVINYL ALCOHOL) OPTH DROPS OU SCH ×3 (06:45→21:15)
[2018-07-23] MEDS: GABAPENTIN 300 MG CAPSULE (FP) PO SCH ×3 (06:45→21:13)
[2018-07-23] MEDS: PANTOPRAZOLE 40 MG TABLET (FP) PO SCH (10:25)
[2018-07-23] MEDS: amLODIPine BESYLATE 5 MG TABLET (FP) PO SCH (10:25)
[2018-07-23] MEDS: PRENATAL VITAMINS W/ FOLIC ACID TABLET (FP) PO SCH (10:25)
[2018-07-23] MEDS: METHYL SALICYLATE/MENTHOL OINT 30 GM TUBE TP SCH ×2 (10:26→21:15)
[2018-07-23] MEDS: QUEtiapine FUMARATE 100 MG TABLET (FP) PO SCH (10:26)
[2018-07-23] MEDS: CLOTRIMAZOLE 1% 10 ML TOPICAL SOLUTION TP SCH ×2 (10:26→21:15)
[2018-07-23] MEDS: LIDOCAINE 5% TOPICAL PATCH TP SCH (10:26)
[2018-07-23] MEDS ORDERED: PT OWN MED DRAWER 7, Y5N ONE ×2 (10:30→14:33)
--- NOTE | 2018-07-23 12:02 | PN ---
[facility] Progress Note Note: PATIENT SCHEDULED FOR DISCHARGE TOMORROW MORNING. PATIENT IS TO CONTINUE WITH AFTERCARE AT [facility] AND ENCOURAGED TO ATTEND GROUP MEETINGS TO PREVENT RELAPSE. PATIENT ALSO STRONGLY ADVISED TO FOLLOW UP WITH PCP WITHIN ONE WEEK OF D/C TO CONTINUE MEDICAL MANAGEMENT AND FOR CONSULT TO UROLOGY/ NEPHROLOGY. PATIENTS MEDICAL PRESCRIPTIONS SENT TO PREFERRED PHARMACY. PATIENT STATES SHE ACCOMPLISHED ALL REHAB GOALS AND DENIES SI/HI. PATIENT MEDICALLY STABLE AT THIS TIME FOR DISCHARGE TOMORROW MORNING. Vital Signs Temperature 98.0 F 07/23/18 07:11 Pulse Rate 96 H 07/23/18 07:11 Respiratory Rate 18 07/23/18 07:11 Blood Pressure 107/73 07/23/18 07:11 O2 Sat by Pulse Oximetry (%) Laboratory Tests 07/14/18 07/14/18 07/14/18 13:20 13:20 13:20 WBC 6.2 RBC 4.15 Hgb 13.7 Hct 40.1 MCV 96.6 H MCH 32.9 MCHC 34.1 RDW 13.9 Plt Count 296 MPV 8.3 Sodium 143 Potassium 4.3 Chloride 110 H Carbon Dioxide 26 Anion Gap 6 L BUN 39 H Creatinine 1.5 H Creat Clearance w eGFR 35.30 Random Glucose 87 Calcium 9.8 Total Bilirubin 0.5 AST 25 ALT 37 Alkaline Phosphatase 89 Total Protein 8.6 H Albumin 4.1 Urine Color Urine Appearance Urine pH Ur Specific Sisters Urine Protein Urine Glucose (UA) Urine Ketones Urine Blood Urine Nitrite Urine Bilirubin Urine Urobilinogen Ur Leukocyte Esterase Urine WBC (Auto) Urine RBC (Auto) Ur Epithelial Cells Urine Bacteria Hyaline Casts Urine Mucus RPR Titer Nonreactive 07/15/18 07/20/18 11:10 08:35 WBC RBC Hgb Hct MCV MCH MCHC RDW Plt Count MPV Sodium 139 Potassium 4.4 Chloride 105 Carbon Dioxide 31 Anion Gap 4 L BUN 23 H Creatinine 1.5 H Creat Clearance w eGFR 35.30 Random Glucose 119 H Calcium 9.0 Total Bilirubin 0.3 AST 21 ALT 42 Alkaline Phosphatase 86 Total Protein 7.8 Albumin 3.8 Urine Color Yellow Urine Appearance Slcloudy Urine pH 6.0 Ur Specific Sisters 1.021 Urine Protein Negative Urine Glucose (UA) Negative Urine Ketones Negative Urine Blood Negative Urine Nitrite Negative Urine Bilirubin Negative Urine Urobilinogen Negative Ur Leukocyte Esterase 1+ H Urine WBC (Auto) 5 Urine RBC (Auto) 1 Ur Epithelial Cells Rare Urine Bacteria Few Hyaline Casts 2 Urine Mucus Rare RPR Titer
--- NOTE | 2018-07-23 14:20 | PN ---
[facility] Progress Note Note: PATIENT SEEN FOR C/O VAGINAL ITCHING AND WHITE VAGINAL DISCHARGE X 2 DAYS. PATIENT DENIES URINARY FREQUENCY, URGENCY, BURNING, PELVIC DISCOMFORT AND FEVER. PATIENT FOR DISCHARGE TOMORROW AND ENCOURAGED TO FOLLOW UP WITH PCP WITHIN 3 DAYS OF D/C TO CONTINUE MEDICAL MANAGEMENT. PHYSICAL EXAM STABLE. PATIENT ALERT AND ORIENTED X 3, SKIN WARM AND DRY. ABD SOFT, BS+, NT. NO PELVIC TENDERNESS, NEG CVAT. EXT FULL ROM, AMB AD SHANNON. WILL TREAT SYMPTOMATICALLY WITH DIFLUCAN 150MG PO X ONE DOSE AND CONTINUE TO MONITOR CLINICALLY.
[2018-07-23] MEDS ORDERED: FLUCONAZOLE 50 MG TABLET PO ONE (14:45)
[2018-07-23] MEDS: ATORVASTATIN CA 40 MG TABLET (FP) PO SCH (21:13)
[2018-07-23] MEDS: traZODone HCL 50 MG TABLET (FP) PO SCH (21:13)
[2018-07-23] MEDS: CYCLOBENZAPRINE HCL 10 MG TABLET (FP) PO PRN (21:13)
[2018-07-23] MEDS: QUEtiapine FUMARATE 300 MG TABLET PO SCH (21:13)
[2018-07-23] MEDS: THIAMINE HCL 100 MG TABLET (FP) PO SCH (21:13)
[2018-07-23] MEDS: LIDOCAINE PATCH REMOVAL MC SCH (21:15)
[2018-07-24] MEDS ORDERED: PT OWN MED DRAWER 7, Y5N ONE ×2 (05:53→08:41)
[2018-07-24] MEDS: ARTIFICIAL TEARS (POLYVINYL ALCOHOL) OPTH DROPS OU SCH (06:39)
[2018-07-24] MEDS: GABAPENTIN 300 MG CAPSULE (FP) PO SCH (06:39)
[2018-07-24 06:55] VITALS: TEMP 97.8
[2018-07-24] MEDS: COLLOIDAL OATMEAL 1 BAR EACH TP PRN (07:26)
[2018-07-24 09:12] VITALS: BP 95/66; PULSE 111
[2018-07-24] MEDS: amLODIPine BESYLATE 5 MG TABLET (FP) PO SCH (09:23)
[2018-07-24] MEDS: PANTOPRAZOLE 40 MG TABLET (FP) PO SCH (09:23)
[2018-07-24] MEDS: QUEtiapine FUMARATE 100 MG TABLET (FP) PO SCH (09:30)
[2018-07-24] MEDS: CLOTRIMAZOLE 1% 10 ML TOPICAL SOLUTION TP SCH (09:39)
[2018-07-24] MEDS: METHYL SALICYLATE/MENTHOL OINT 30 GM TUBE TP SCH (09:39)
[2018-07-24] MEDS: PRENATAL VITAMINS W/ FOLIC ACID TABLET (FP) PO SCH (09:39)
[2018-07-24] MEDS: LIDOCAINE 5% TOPICAL PATCH TP SCH (09:39)
== END 2018-07-24 09:54 | disposition home or self-care (01) | DRG 772 ==
LOC: YASAS 10:00 → Y3E 13:29
PROVIDERS: ADMIT Psychiatry & Neurology Psychiatry; ATTEND Psychiatry & Neurology Psychiatry
PROC: HZ42ZZZ Group Counseling for Substance Abuse Treatment, Cognitive-Behavioral (ICD-10-PCS; principal; 2018-07-14)
DX: F10.20 Alcohol dependence, uncomplicated (principal); F14.10 Cocaine abuse, uncomplicated; F17.210 Nicotine dependence, cigarettes, uncomplicated; F31.9 Bipolar disorder, unspecified; F25.9 Schizoaffective disorder, unspecified; I10 Essential (primary) hypertension; K21.9 Gastro-esophageal reflux disease without esophagitis; N89.8 Other specified noninflammatory disorders of vagina; R79.89 Other specified abnormal findings of blood chemistry; H04.123 Dry eye syndrome of bilateral lacrimal glands; M54.30 Sciatica, unspecified side; J45.909 Unspecified asthma, uncomplicated; E78.00 Pure hypercholesterolemia, unspecified; Z88.1 Allergy status to other antibiotic agents; Z88.2 Allergy status to sulfonamides; Z91.012 Allergy to eggs; Z91.14 Patient's other noncompliance with medication regimen; Z91.5 Personal history of self-harm
CPT/HCPCS: 36415; 80053; 81003; 81015; 85027; 86593; 93005; 93010